=== PATIENT | female | born 1945 | race African-American/Black ===

== ENCOUNTER 2017-01-17 11:53 | Inpatient (IN) ==
[2017-01-17 15:12] LABS: HEMATOCRIT 24.8 % (37.0-47.0); HEMOGLOBIN 7.5 g/dL (12.0-16.0); MCH 28.2 PG (27-31); MCHC 30.2 g/dL (33-37); MCV 93.2 FL (81-99); MPV 9.6 FL (7.4-10.4); RBC 2.66 XMIL (4.2-5.4)
[2017-01-17 15:26] LABS: HEMOGLOBIN A1C 5.6 % (4.8-6.0)
[2017-01-17 15:32] LABS: CALCIUM 8.8 mg/dL (8.8-10.2); POTASSIUM 4.5 mmol/L (3.5-5.1)
[2017-01-17 15:56] LABS: IRON SATURATION 18 %; TIBC 339 ug/dL; TOTAL IRON 60 ug/dL (49-151); UNBOUND IRON 279 ug/dL (112-346)
[2017-01-17] MEDS ORDERED: BOOSTRIX VACCINE IM ONE (20:34)
[2017-01-17] MEDS ORDERED: NS 500 ML ONE (20:35)
[2017-01-17] MEDS: LIORESAL PO SCH (20:44)
[2017-01-17] MEDS: COREG PO SCH (20:45)
--- NOTE | 2017-01-17 21:11 | HISTORY AND PHYSICAL ---
CHIEF COMPLAINT: 1. Symptomatic anemia, shortness of breath. 2. Evaluated in the ER yesterday skittles fell on the both feet, sustained a skin burn. Patient was sent home on ibuprofen and doxycycline. HISTORY OF PRESENT ILLNESS: She is 71-year-old pleasant female. Basically came my office today with above symptoms. Patient has hematocrit baseline is around 31 and in my office hematocrit was 23 last week and she was asked to have the Hemoccult stools which are 3/3 positive. She also has a chronic kidney disease which has been worsening. She had chronic anemia back in 2014. She did receive 2 units of packed RBC during that time, patient has a normal erythropoietin level, normal SPEP. EGD, colonoscopy was done by Dr. Milner which was negative. She also had a right hemicolectomy by Dr. Sierra. Since patient has worsening of the kidney function test, anemia and also evaluation of the skin macias that was happened yesterday for all these reasons she has been hospitalized. I did discuss with Dr. Milner. He wants to transfuse a unit of packed RBC. He also wants to consult with Dr. Dejesus for chronic kidney disease. PAST MEDICAL HISTORY: Anemia, hematocrit 23, aortic stenosis mild, chronic kidney disease stage 3 keeps worsening, baseline creatinine is 2.1, diastolic heart failure, type 2 diabetes, metabolic syndrome, hypertension, osteoarthritis, hyperuricemia, hypothyroidism, sleep apnea, chronic respiratory failure due to Pickwickian syndrome using BiPAP machine along with sarcoidosis and interstitial fibrosis on prednisone. PAST SURGICAL HISTORY: Total knee arthroplasty in the left, colon resection on the right side by Dr. Sierra for diverticulitis. MEDICATIONS: Allopurinol 100 daily, baclofen 10 t.i.d., Breo 100/25 1 puff daily, Coreg 12.5 p.o. b.i.d., Flexeril 10 mg daily, Fenofibrate 160 daily, glipizide 10 mg p.o. b.i.d., hydralazine 25 three times daily, Icar-C Plus 1 tablet daily, Lasix 40 as needed, Zyrtec 10 mg daily, Synthroid 100 mcg daily, losartan 100 mg daily, Norvasc 10 daily, Prilosec 40 daily, oxybutynin as needed, prednisone 5 mg every other day, Rocaltrol 0.5 mcg daily, ProAir as needed, Tradjenta 5 mg daily. ALLERGIES: Not known. SOCIAL HISTORY: for 48 years. Three children. No smoking. No alcohol. Retired. FAMILY HISTORY: Father of heart attack at 70 mom of congestive heart failure at the age of 46. HEALTH MAINTENANCE: Flu vaccine 2015, pneumococcal 2008. Last EGD and colonoscopy by Dr. Milner in 2014. REVIEW OF SYSTEMS: HEENT: No headache. No vision problem. No earache. No sore throat. Neck: No goiter. No lymphadenopathy. No bruit. Cardiopulmonary: No chest pain, shortness of breath on exertion, PND orthopnea, taking oxygen. No lumps in the breast. GI: No nausea, vomiting, abdominal pain. Heme-positive stools. : No history of hesitancy, frequency. Extremities: Bilateral feet have skin macias and arthritic pains in both knees. Neurologic: No focal symptoms or weakness or seizures. PHYSICAL EXAMINATION: VITAL SIGNS: Stable. 5 feet 2, 207 pounds. HEENT: Within normal limits. Anemic. TMs are normal. Tongue is in midline. NECK: Supple. No lymphadenopathy. No goiter. CHEST: Bilateral air entry. HEART: Sounds are regular with a 2/6 systolic murmur in the aortic area. BREASTS: Exam deferred. BELLY: Soft, obese, nontender. Good bowel sounds. Heme-positive stools x3. No peripheral edema, cyanosis, clubbing. NEUROLOGIC: Nonfocal. INVESTIGATIONS: CBC: White cell count 5.5, hematocrit 24, platelets 301. SMA 7, BUN 78, creatinine 4.2, glucose 134, A1c 5.6, iron profile was negative. ASSESSMENT AND PLAN: 1. A 71-year-old female admitted to the hospital symptomatic anemia. Hematocrit was 23, heme-positive stools with underlying chronic respiratory failure, aortic stenosis. Transfuse a unit of packed RBCs tonight. Follow up on CBC. 2. Chronic kidney disease. Previous ultrasounds are negative. Dr. Dejesus consult. 3. Anemia of chronic kidney disease. Rule out multiple myeloma. SPEP was ordered. 4. Chronic kidney disease, anemia and also check erythropoietin level. Iron profile is normal. 5. Chronic respiratory failure due to combination of Pickwickian syndrome, underlying sarcoidosis with interstitial fibrosis. Prednisone 5 mg every other day. 6. Sleep apnea on CPAP machine with home oxygen. 7. Gout. Allopurinol 100 mg daily. 8. Aortic stenosis mild, stable. 9. Atypical chest pain. Last cardiac workup was negative in 2011. 10. History of acid reflux disease on Breo 40 mg daily. 11. Hypothyroidism on Synthroid 100 mcg daily. 12. Type 2 diabetes. Last A1c was 6.3 currently on Tradjenta. 13. Hypertension, heart disease. Continue present medical therapy for blood pressure. 14. First-degree heat burn on both feet. In light of diabetes wound care consult and she was not up-to-date on tetanus. Consider tetanus vaccine and will follow up on the pending labs. cc: David Stovall MD MTDD
[2017-01-17] MEDS: HUMULIN R SUBQ SCH (22:14)
--- NOTE | 2017-01-18 02:42 | CONSULTATION ---
DATE OF CONSULTATION: 01/17/2017 HISTORY AND REASON FOR CONSULTATION: For evaluation of this patient with anemia. HISTORY OF PRESENT ILLNESS: This is a 71-year-old lady, known to me from the admission in 2014. The patient went to see Dr. Stovall on . At that time, she was feeling very weak and tired. He did do some blood work, and also gave her 3 cards to see whether there is any blood in the stool. The patient then brought all the cards back, and all the 3 cards were positive for occult bleeding. Since she was quite anemic, Dr. Stovall decided to admit the patient on Tuesday for further evaluation and management. She said that she has been having black stools for the past 1 month. She denies any abdominal pain, constipation, or diarrhea. She says that she has no red blood in stool. Her says that last year she saw Dr. Ibarra. A colonoscopy was performed. It only showed hemorrhoids. PAST MEDICAL HISTORY: The patient has had multiple admissions to the hospital, with different problems. Last time I her was in 10/09/2015. At that time, she had rectal bleeding. She had passed red blood about 3 times. I have done a colonoscopy for her, which revealed diverticulosis of the colon, and also hemorrhoids. She had a right hemicolectomy. The patient's significant other medical problems include: 1. Chronic obstructive pulmonary disease. 2. Hypertension. 3. Diastolic heart failure. 4. Diabetes mellitus. 5. Obesity. 6. Osteoarthritis. 7. Chronic renal insufficiency, stage 2 or 3. 8. Sarcoidosis. 9. Hypothyroidism. 10. Obesity with Pickwickian syndrome, on oxygen therapy. 11. Diverticulosis of the colon. 12. Gastroesophageal reflux disease and chronic gastritis. 13. Small hiatus hernia. PAST SURGICAL HISTORY: 1. She had a resection of the right side of the colon secondary to diverticulitis a few years ago. 2. Left knee arthroplasty. 3. Previous esophagogastroduodenoscopy and colonoscopy in 2014, which revealed a right hemicolectomy and diverticulosis of the colon. She also had an esophagogastroduodenoscopy, which revealed a hiatus hernia. 4. History of heart failure. SOCIAL HISTORY: Patient used to smoke heavily, but stopped tobacco some time ago. She is living with her in [place]. She has 2 children. FAMILY HISTORY: No history of gastrointestinal cancer in the family. There is a history of hypertension and diabetes in the family. ALLERGIES: No known drug allergies. PHYSICAL EXAMINATION: Vital Signs: The temperature is 98.1 degrees, pulse rate is 93 per minute, respiratory rate is 20, blood pressure is 134/73. General: She looks pale. Very obese lady, in no acute distress. She is eating a regular diet while I was interviewing her. Neck: Supple. There is no thyromegaly. Cardiac: Both heart sounds are heard. Rhythm is slightly tachycardic. I could not hear any murmur. Lungs: Reveal a few bibasilar crackles. Abdomen: Protuberant. No area of tenderness. Bowel sounds are heard. No masses felt. Extremities: Apparently, she was cooking some pork for her , and there was some grease on the ground which was very hot. She stepped on it, and she developed some macias, and she is wearing bandages on her feet. It does not hurt at this point she said. Extremities otherwise free of any edema. LABORATORY DATA: WBC count is 5.52, hemoglobin is 7.5, hematocrit 24.8. The platelet count is 301,000. Sodium is 138, potassium is 4.5, chloride is 100, CO2 is 26, BUN is 78, creatinine is 4.2. The glucose is 134. Hemoglobin A1c is 5.6, calcium is 8.8, serum iron is 60, TIBC is 339. Saturation is 18. Ferritin level is 26. Folate is 25.3. IMPRESSION: 1. Black stools. Probably upper gastrointestinal bleeding causing her to have black stools and guaiac-positive stools. 2. Anemia of chronic disease, secondary to renal failure. RECOMMENDATION: We will observe the patient. Dr. Stovall is already giving transfusions. I am going to plan to do an esophagogastroduodenoscopy at a later date, perhaps on Tuesday. I do not believe that a colonoscopy is needed, because there is no evidence of any of rectal bleeding at this point. I will discuss all of these things once the patient gets a blood transfusion, with the patient and her and Dr. Stovall. cc: David Stovall MD
[2017-01-18] MEDS: HUMULIN R SUBQ SCH ×3 (06:00→20:53)
[2017-01-18 06:06] LABS: MANUAL DIFF NEEDED? NO
[2017-01-18 06:14] LABS: BASO% 0.3 % (0.0-0.8); EOS# 0.14 X1000 (0.0-0.7); EOS% 2.3 % (0.0-10.0); HEMATOCRIT 28.1 % (37.0-47.0); HEMOGLOBIN 8.6 g/dL (12.0-16.0); LYMPH# 2.54 X1000 (1.2-3.4); MCH 28.2 PG (27-31); MCHC 30.6 g/dL (33-37); MCV 92.1 FL (81-99); MONO# 0.81 X1000 (0.11-0.59); MONO% 13.4 % (1.7-9.3); MPV 10.1 FL (7.4-10.4); PLT 301 X1000 (130-400); RBC 3.05 XMIL (4.2-5.4)
[2017-01-18] MEDS: PRILOSEC PO SCH (06:22)
[2017-01-18 06:23] LABS: ALBUMIN 3.4 g/dL (3.5-5.0); POTASSIUM 4.6 mmol/L (3.5-5.1); TOTAL BILIRUBIN 0.4 mg/dL (0.20-1.00); TOTAL PROTEIN 5.8 g/dL (6.3-8.3)
--- NOTE | 2017-01-18 08:47 | Diag Imaging Result Doc PS360 ---
EXAM: US RENAL 2 (RETROPER) COMPLETE HISTORY: decreased renal function TECHNIQUE: COMPARISON: 10/29/2015. FINDINGS: The right kidney measures 8.2 x 4.6 x 4.3 cm. There is increased renal echotexture. Normal cortical thickness. No stone or hydronephrosis. No renal mass. Minimal fullness to the renal pelvis. The left kidney measures 9.8 x 5.8 x 5.7 cm. Increased renal echotexture. Normal cortical thickness. There are several small renal cysts. The largest measures 2.3 cm. No stone or hydronephrosis. The urinary bladder is mildly distended and appears normal. IMPRESSION: Increased renal echotexture consistent with medical renal disease Electronically signed by Kalpesh Iglesias 01/18/2017 8:44 AM
[2017-01-18] MEDS: COREG PO SCH ×4 (08:51→20:54)
[2017-01-18] MEDS: SYNTHROID PO SCH (08:51)
[2017-01-18] MEDS: NORVASC PO SCH (08:51)
[2017-01-18] MEDS: FERROUS SULFATE PO SCH (08:51)
[2017-01-18] MEDS: TRADJENTA PO SCH (08:51)
[2017-01-18] MEDS: COZAAR PO SCH (08:52)
[2017-01-18] MEDS: DITROPAN XL PO SCH (08:52)
[2017-01-18] MEDS: LOFIBRA PO SCH (08:52)
[2017-01-18] MEDS: LIORESAL PO SCH ×2 (08:52→20:54)
[2017-01-18] MEDS: APRESOLINE PO SCH ×3 (08:52→20:54)
[2017-01-18] MEDS: NORCO-5 PO PRN ×2 (09:08→15:07)
--- NOTE | 2017-01-18 10:28 | PROGRESS NOTE ---
DATE: 01/18/2017 HISTORY OF PRESENT ILLNESS: This patient is admitted with anemia and weakness. Dr. Stovall has ordered 1 unit of blood transfusion. Her hemoglobin came up from 7.5 to 8.6. She is feeling much better today with improvement in her weakness. The patient denies any abdominal pain. Yesterday, she told me that she had been having black stool on and off for 1 month. Today, she said that she only had black stools for about a week. Yesterday, she had black stools and today the bowel movement was clear. The patient denies any red blood in stool. She had last year a colonoscopy when she came in with rectal bleeding. It showed diverticulosis of the colon and also right hemicolectomy. In 2014, she had EGD and colonoscopy. She had gastritis and a small hiatus hernia. The patient had an ultrasound done today which showed medical renal disease. Her BUN has dropped from 78-76, creatinine from 4.2-3.9 today. Other electrolytes are okay. Her appetite is remaining normal. PHYSICAL EXAMINATION: Vital Signs: The temperature is 97.6 degrees, pulse rate is 50, blood pressure is 201/64, and respiratory rate is 18. General Examination: Unremarkable. Abdomen: Nothing new. IMPRESSION: 1. History of black stools. 2. Anemia of chronic disease. Her serum iron is 60, TIBC is 339, and presently saturation is 18, ferritin is 26. There might be an element of iron deficiency also. Because of the history of black stools, I am going to do an esophagogastroduodenoscopy tomorrow. I have explained the procedure of esophagogastroduodenoscopy with benefit and risks; in particular, risk of perforation, hemorrhage, and infection. Patient agreed for it. We will proceed with it. I also explained to the patient about monitored anesthesia care. She agreed for it. There is no indication at this point for a colonoscopy for her. cc: David Stovall MD
--- NOTE | 2017-01-18 12:38 | CONSULTATION ---
DATE OF CONSULTATION: 01/18/2017 REASON FOR CONSULTATION: Acute kidney injury overlying chronic kidney disease. HISTORY OF PRESENT ILLNESS: Ms. Gao is a 71-year-old black female with diabetes, hypertension, gout, osteoarthritis. She has diastolic heart failure as well as chronic kidney disease with resultant anemia. She has had anemia for at least a couple of years. She was in her usual state of health until perhaps a week or so prior to admission when she began feeling bad. She describes feeling profoundly weak and often dizzy, especially when she was up "stirring around." Weak in the legs but no falls. No loss of consciousness. No palpitations, chest discomfort, shortness of breath. She has been eating normally, though she has had some nausea. No vomiting. She describes frequent BMs but not diarrhea. Some mild abdominal pain associated with her bowel movements. She came to the emergency room for possible macias to the feet. She has dropped grease on the feet. This was within the last week. Her evaluation at her office visit with Dr. Stovall found her to be anemic and so he admitted her to the hospital for transfusion. Her initial labs also found her creatinine to be elevated above her historical baseline. Specifically, her baseline has been at 2.5 to 3 and her creatinine was 4.2 on presentation. We have seen her in the hospital about 1 year ago but she has not followed with us in the office. PAST MEDICAL HISTORY: As above. HOME MEDICATIONS: Include levothyroxine, furosemide, amlodipine, oxybutynin, carvedilol, prednisone, losartan, iron sulfate, aspirin, fenofibrate, baclofen, hydralazine, linagliptin, ibuprofen p.r.n., omeprazole. ALLERGIES: None. SOCIAL HISTORY: She is . Retired. No alcohol or tobacco. Large family. FAMILY HISTORY: Positive for heart disease. REVIEW OF SYSTEMS: Otherwise noncontributory. PHYSICAL EXAMINATION: Vital Signs: Blood pressure 201/64, heart rate 50, respirations 18, afebrile. General: She is an elderly woman, sitting in bed, no distress. Skin: Warm and dry. HEENT: Conjunctivae are pink. Pupils are equal. Oropharynx is clear. Mucous membranes moist. Tongue is midline. Neck: Supple. Trachea is midline. Neck: Neck veins are not distended. No hepatojugular reflux. Heart: Regular with a systolic murmur at the left upper sternal border. No gallops. Lungs: Have equal breath sounds. No crackles or wheezes. Abdomen: Obese and soft. Bowel sounds are present. No organomegaly or masses or bruits. Extremities: Have trace edema. No clubbing or cyanosis. Neurologic Exam: Grossly nonfocal. LABORATORY DATA: Sodium 144, potassium 4.6, chloride 104, bicarbonate 28, BUN 76, creatinine 3.9. Hemoglobin 8.6 following transfusion. IMPRESSIONS AND PLAN: 1. Acute kidney injury overlying chronic kidney disease. Renal ultrasound without obstruction. She does have small kidneys. We will give her normal saline at 75 an hour over the next 24 hours and reassess. Check urine electrolytes, urine eosinophils, urine protein, etc. 2. Anemia. She has received a transfusion. Her iron stores certainly were low. She has received a transfusion but we will go ahead and give IV Venofer as well. Erythropoietin level is pending. GI evaluation is appropriate if it has not been performed in recent history. We will not start erythropoietin until her iron deficiency is resolved. cc: MD David Benson MD
[2017-01-18] MEDS: NS 1,000 ML IV SCH (15:04)
[2017-01-18] MEDS: VENOFER 200 MG in NS 150 ML IV SCH (15:04)
--- NOTE | 2017-01-18 18:39 | ECHO REPORT ---
ORDER DATE: 01/18/2017 INTERPRETING PHYSICIAN: Dr. Zacarias REQUESTING PHYSICIAN: Genaro Dejesus MD CLINICAL INDICATIONS: Aortic stenosis, anemia, chronic kidney disease. M-MODE MEASUREMENTS: Right ventricle: 2.7 cm. Left ventricle end diastole: 5.3 cm. Left ventricle end systole: 3.4 cm. Posterior wall: 1.1 cm. Interventricular septum: 1.1 cm. Left atrium: 4.9 cm. Aortic root: 3.7 cm. SUMMARY OF 2-DIMENSIONAL IMAGING: The left ventricular function is normal. Ejection fraction 72%. The chamber is significantly enlarged. There is a mild degree of concentric LVH. The right ventricle is at the upper limits of normal. The aortic valve is calcified. Calcification is somewhat irregular along the edges of the cusps with some restriction to its opening. Color flow mapping shows a mild degree of aortic regurgitation. Continuous wave Doppler across the outflow tract of the left ventricle shows a maximum gradient of 42 mmHg. Mean gradient is 22 mmHg. Valve area is calculated at 1.5 cm squared, suggesting a mild- to-moderate degree of aortic stenosis. The pulmonic valve looks normal with a mild degree of regurgitation. The tricuspid valve shows a mild degree of regurgitation. The inferior vena cava is not dilated. Pulmonary pressure estimated at 23 mmHg. The mitral annulus shows calcification. The mitral valve opens normally. Color flow mapping indicates trace regurgitation. Pulse wave Doppler of mitral inflow shows mild reversal of the E and the A wave. Tissue Doppler of septal and lateral mitral annulus averages 4.5 cm per second, indicating impaired left ventricular relaxation. Pulmonary venous flow is normal. There is no pericardial effusion, masses or thrombus. The left atrium is moderately to significantly enlarged. IMPRESSION: In summary, this study shows: 1. Enlarged left ventricle of moderate to significant degree with normal function. Ejection fraction 72%. 2. Impaired left ventricular relaxation. 3. [id number] degree of aortic stenosis. Mean gradient is 22 mmHg. Valve area 1.5 cm squared. There is a mild degree of aortic regurgitation. 4. Pulmonary systolic pressure is normal. 5. No pericardial effusion, masses or thrombus. cc: MD Genaro Oquendo MD Jagan Reddy, MD
[2017-01-18 21:17] LABS: URINE MICRO REVIEW NEEDED? NO; URINE SOURCE VOIDED
[2017-01-18 21:22] LABS: BILIRUBIN URINE NEGATIVE (NEGATIVE); BLOOD URINE NEGATIVE (NEGATIVE); COLOR YELLOW; GLUCOSE URINE NEGATIVE (NEGATIVE); LEUKOCYTES URINE NEGATIVE (NEGATIVE); NITRITE URINE NEGATIVE (NEGATIVE); PROTEIN URINE 100 mg/dL (NEGATIVE); TURBIDITY URINE CLEAR (CLEAR); UROBILINOGEN URINE NORMAL (NORMAL)
[2017-01-18 21:23] LABS: UR EPITHELIAL CELLS <10 /HPF (<10); URINE BACTERIA NEGATIVE /HPF; URINE RBC <10 /HPF (<10); URINE WBC <10 /HPF (<10)
[2017-01-18 21:47] LABS: UR CREAT RANDOM 59.9 mg/dL (11-20); UR PROT RANDOM 86.5 mg/dL
[2017-01-19] MEDS: NORCO-5 PO PRN (03:40)
[2017-01-19] MEDS: NS 1,000 ML IV SCH ×3 (05:15→12:09)
[2017-01-19 05:45] LABS: HEMATOCRIT 30.9 % (37.0-47.0); HEMOGLOBIN 9.7 g/dL (12.0-16.0); MCH 29.1 PG (27-31); MCHC 31.4 g/dL (33-37); MCV 92.8 FL (81-99); MPV 9.7 FL (7.4-10.4); RBC 3.33 XMIL (4.2-5.4)
[2017-01-19 06:10] LABS: ALBUMIN 3.4 g/dL (3.5-5.0); CALCIUM 8.8 mg/dL (8.8-10.2); POTASSIUM 4.9 mmol/L (3.5-5.1)
--- NOTE | 2017-01-19 07:29 | PROGRESS NOTE ---
DATE: 01/18/2017 SUBJECTIVE: Status post 1 unit of packed RBCs. The patient was discussed. She does not offer any complaints. The case was discussed with Dr. Dejesus and Dr. Milner. REVIEW OF SYSTEMS: None recorded. OBJECTIVE: Vital signs: Vitals are stable. Blood pressure is running high. Heart rate is 50. Afebrile. Nasal cannula on 2 L 100%. General: Obese. HEENT: Exam within normal limits. Neck: Supple. No lymphadenopathy. No goiter. Chest: Bilateral air entry. Cardiac : Heart sounds are regular. Belly: Soft, nontender, obese. Good bowel sounds. Herrera wraps and bandage were removed from both feet and I could not find any blisters. Skin is intact. INVESTIGATIONS: CBC: White cell count 6, hematocrit 28, platelets 301. SMA7: BUN 76, creatinine 3.9, glucose 102. A1c 5.6. Erythropoietin level 9.0. SPEP is no monoclonal protein identified. Urinalysis: Eosinophils are negative, clear. ASSESSMENT AND PLAN: 1. Anemia and heme-positive stools. Previous workup was negative. Status post 1 unit of packed RBCs. Will keep her around 30. 2. Heme-positive stools. Previous workup revealed internal hemorrhoids. Will defer to Dr. Milner. 3. End-stage chronic kidney disease level 4 and EPO levels are normal. Normal SPEP. Will follow with Dr. Dejesus's recommendations. 4. History of injury to both feet. Not up to date on tetanus. Will administer TDAP. TIME: Twenty-five minutes. cc: David Stovall MD [facility]
[2017-01-19] MEDS ORDERED: XYLOCAINE-MPF 2% ONE (08:25)
--- NOTE | 2017-01-19 08:42 | PROGRESS NOTE ---
DATE: 01/19/2017 SUBJECTIVE: This patient is admitted with significant anemia. She has undergone an esophagogastroduodenoscopy which revealed that she has early erosive gastritis and mild sandrine esophagitis. She was started on Diflucan. She is already on omeprazole. The patient's condition seems to be stable. PHYSICAL EXAMINATION: Vital Signs: Temperature is 98.5 degrees. Pulse is 50 per minute, respiratory rate is 16, blood pressure is 176/64. General Examination: Negative. Abdominal Examination: Also negative. LAB DATA: WBC count is 5.27, hemoglobin 9.7, hematocrit 30.9. The sodium is 142, potassium 4.9, chloride is 104, CO2 is 27, BUN 69, creatinine is 3.4. On admission, serum iron was 50, TIBC was 339, saturation was 18, ferritin level was 26. Her erythropoietin level was 9. IMPRESSION: 1. Improvement in her anemia. 2. Erosive gastritis. 3. Sandrine esophagitis. 4. No significant iron-deficiency anemia. No definite evidence of any bleeding. RECOMMENDATIONS: I do not believe there is a colonoscopy needed at this point for this patient. She has anemia of chronic disease and also possibly mild iron-deficiency anemia which is being taken care of by oral iron therapy. After discharge, she needs to see me in the office in 2 weeks' time. cc: MD Genaro Fernandez MD
--- NOTE | 2017-01-19 08:50 | OPERATIVE NOTE ---
PROCEDURE DATE: 01/19/2017 PROCEDURE: Esophagogastroduodenoscopy. DATE OF PROCEDURE: 01/19/2017. HISTORY AND REASON FOR PROCEDURE: This patient is admitted with a history of black stools for the past 1 week. She was very anemic and she has received blood transfusion. Her hemoglobin and hematocrit came up today to 9.7 and 30.9. She has improved. Medications were all given by the anesthesiologist. Patient was monitored before, during, and after the procedure by them, and her condition remains stable. Photos taken from the antrum and specimen from the antrum to rule out Helicobacter pylori infection. DESCRIPTION OF PROCEDURE IN DETAIL: The patient was kept in the left lateral decubitus position. A bite block applied. The Olympus videoscope was introduced under direct vision to the throat and advanced to the esophagus. The esophagus was then insufflated. The mucosa in the upper esophagus, mid esophagus, and lower esophagus had a few whitish-hernandez exudates present suggestive of yeast infection which is not uncommon in patients with diabetes mellitus. It was a mild infection, not a florid one. The scope was advanced without any difficulty into the stomach. There was a small hiatus hernia present. The mucosa of the stomach was very crowded with some edema and erythema of the folds with significant erosions in the prepyloric antrum. Multiple erosions were found with no evidence of any bleeding. There were enlarged folds in that area. Biopsies were taken from this area to rule out H. pylori infection. The pylorus admitted the scope without any difficulty. Duodenal bulb and second part of the duodenum appeared normal. The scope was withdrawn to the stomach, retroflexed. The angularis, lesser curvature, and greater curvature were all examined carefully. There were no lesions present in the body and fundus of the stomach. There was no evidence of any bleeding. Air was taken out of the patient's stomach and scope was removed from the patient. IMPRESSION: 1. Erosive gastritis. This may contribute to her anemia only a little bit. 2. Cause of black stool might be secondary to her iron therapy, which she is getting constantly. RECOMMENDATIONS: I will start her on Diflucan 100 mg daily; it needs to be given for about 2 weeks. Patient to see me back in the office in 2 weeks time after discharge for the results of the biopsy. cc: David Stovall MD
[2017-01-19] MEDS ORDERED: PREDNISONE PO SCH (09:00)
[2017-01-19] MEDS: COZAAR PO SCH (09:28)
[2017-01-19] MEDS: FERROUS SULFATE PO SCH (09:29)
[2017-01-19] MEDS: DITROPAN XL PO SCH (09:29)
[2017-01-19] MEDS: LOFIBRA PO SCH (09:29)
[2017-01-19] MEDS: TRADJENTA PO SCH (09:29)
[2017-01-19] MEDS: LIORESAL PO SCH ×2 (09:29→21:04)
[2017-01-19] MEDS: DIFLUCAN PO SCH (09:30)
[2017-01-19] MEDS: NORVASC PO SCH (09:30)
[2017-01-19] MEDS: VENOFER 200 MG in NS 150 ML IV SCH (09:30)
[2017-01-19] MEDS: SYNTHROID PO SCH (09:30)
[2017-01-19] MEDS: APRESOLINE PO SCH ×3 (09:30→17:54)
[2017-01-19] MEDS: COREG PO SCH ×2 (09:30→21:04)
--- NOTE | 2017-01-19 09:37 | PROGRESS NOTE ---
DATE: 01/19/2017 SUBJECTIVE: She states she is feeling well. She had an endoscopy this morning without any active bleeding. She did have evidence of tiff esophagitis as well as erosive gastritis. Colonoscopy is not planned currently. OBJECTIVE: Vital Signs: Blood pressure 175/73, heart rate 51, respirations 16, afebrile. Intake 1.6 L. Output incomplete. Physical Examination: General: Obese, black female, in no distress. Skin: Warm and dry. HEENT: Conjunctivae are pink. Neck: Neck veins are not visible. Heart: Regular without gallops or murmurs. Lungs: Have equal breath sounds. No crackles. Abdomen: Soft, nontender, obese. Bowel sounds present. Extremities: Have minimal edema. No clubbing or cyanosis. Laboratory Data: Sodium 142, potassium 4.9, chloride 104, bicarbonate 27, BUN 69, creatinine 3.4. Hemoglobin 9.7. IMPRESSION: 1. Acute kidney injury overlying chronic kidney disease. Baseline creatinine approximately 2.5. Labs are improving on a daily basis. Observe. If discharged, we will follow her in the office within proximally 2-3 weeks. 2. Electrolytes/acid base in target. 3. Anemia. Her erythropoietin level is inappropriately normal. We are currently replacing her iron deficiency. If anemia is persistent thereafter, then she may need erythropoietin. 4. Hypertension, above target but stable. We will address as an outpatient. cc: MD David Benson MD
[2017-01-19] MEDS ORDERED: DIPRIVAN 1% ONE (09:51)
[2017-01-19] MEDS: HUMULIN R SUBQ SCH ×4 (12:00→21:04)
[2017-01-19] MEDS: PRILOSEC PO SCH (12:01)
--- NOTE | 2017-01-19 19:11 | PROGRESS NOTE ---
DATE: 01/19/2017 SUBJECTIVE: Patient is status post 2 units of packed RBCs and 300 mg of Venofer. No complaints. The patient is going for esophagogastroduodenoscopy this morning. OBJECTIVE: Vitals: Stable. HEENT: Within normal limits. Neck: Supple. No lymphadenopathy. Chest: Clear to auscultation. Heart: Sounds are regular with a flow murmur in the aortic area. Abdomen: Belly is soft, obese, nontender. Good bowel sounds. No masses palpable. No peripheral edema, cyanosis, clubbing. Neurologic: Nonfocal. INVESTIGATIONS: CBC: White cell count 5.2, hematocrit 30, platelet 277,000. BUN 142, potassium 4.9, chloride 104, BUN 69, creatinine 3.4, glucose 110 and erythropoietin is low 9.0. ASSESSMENT AND PLAN: 1. Anemia, heme-positive stools. EGD is going today. Status post 2 units of packed RBC iron infusion. 2. Chronic kidney disease. Erythropoietin is low status post iron infusion. Dr. Dejesus is going to follow up. 3. Based on the EGD further recommendations will be followed and if she is stable will be discharged in the morning and follow up as an outpatient LEVEL OF DOCUMENTATION: 15 minutes. cc: David Stovall MD
[2017-01-20] MEDS: NS 1,000 ML IV SCH (00:27)
[2017-01-20] MEDS: NORCO-5 PO PRN ×2 (01:45→08:12)
[2017-01-20 06:02] LABS: HEMATOCRIT 31.7 % (37.0-47.0); HEMOGLOBIN 9.9 g/dL (12.0-16.0); MCH 28.9 PG (27-31); MCHC 31.2 g/dL (33-37); MCV 92.7 FL (81-99); MPV 9.6 FL (7.4-10.4); RBC 3.42 XMIL (4.2-5.4)
[2017-01-20 06:38] LABS: ALBUMIN 3.5 g/dL (3.5-5.0); CALCIUM 8.8 mg/dL (8.8-10.2); POTASSIUM 4.8 mmol/L (3.5-5.1)
[2017-01-20] MEDS: HUMULIN R SUBQ SCH (06:51)
[2017-01-20] MEDS: PRILOSEC PO SCH (06:52)
[2017-01-20 07:44] VITALS: BP 189/55
[2017-01-20] MEDS: APRESOLINE PO SCH (08:14)
[2017-01-20] MEDS: NORVASC PO SCH (08:14)
[2017-01-20] MEDS: FERROUS SULFATE PO SCH (08:14)
[2017-01-20] MEDS: DITROPAN XL PO SCH (08:14)
[2017-01-20] MEDS: LIORESAL PO SCH (08:15)
[2017-01-20] MEDS: DIFLUCAN PO SCH (08:16)
[2017-01-20] MEDS: COREG PO SCH (08:16)
[2017-01-20] MEDS: LOFIBRA PO SCH (08:16)
[2017-01-20] MEDS: TRADJENTA PO SCH (08:16)
[2017-01-20] MEDS: VENOFER 200 MG in NS 150 ML IV SCH (08:17)
[2017-01-20] MEDS: SYNTHROID PO SCH (08:17)
--- NOTE | 2017-01-20 09:04 | PROGRESS NOTE ---
DATE: 01/20/2017 SUBJECTIVE: She is feeling well and is anticipating discharge today. Shortness of breath is at baseline. OBJECTIVE: Blood pressure 189/55, heart rate 48, respirations 14, afebrile. Generally, she is a middle-aged, obese woman in no acute distress. Skin is warm and dry. Conjunctivae are pink and moist. Neck veins are not visible. Heart is regular, without gallops. Lungs have equal breath sounds. No crackles. Abdomen is soft and nontender, obese. Extremities have no edema, clubbing or cyanosis. LABORATORY DATA: Sodium 142, potassium 4.8, chloride 106, bicarbonate 26, BUN 60, creatinine 2.9. IMPRESSION: 1. Chronic kidney disease. Her creatinine is roughly at her historical baseline, improving daily. 2. Electrolyte/acid-base in target. 3. Anemia, stable. She is finishing her course of Venofer. We will follow her in the office and treat with erythropoietin if appropriate. 4. Hypertension, above target. We will adjust this more tightly as an outpatient. cc: MD David Benson MD
--- NOTE | 2017-01-20 23:18 | DISCHARGE SUMMARY ---
ADMISSION DATE: 01/17/2017 DISCHARGE DATE: 01/20/2017 DISCHARGING DIAGNOSIS: Symptomatic anemia due to multifactorial, with heme-positive stools and chronic kidney disease and iron deficiency anemia. SECONDARY DIAGNOSES: 1. Srcu-[id number]-[id number] aortic valve stenosis. 2. Chronic kidney disease, stage 3. 3. Diastolic heart failure. 4. Type 2 diabetes. 5. Hypertension. 6. Osteoarthritis. 7. Hyperuricemia. 8. Hypothyroidism. 9. Sleep apnea. 10. Chronic respiratory failure due to Pickwickian syndrome, along with sarcoidosis and interstitial fibrosis, on prednisone, using BiPAP machine. CONSULTANTS: Dr. Dejesus and Dr. Milner. PROCEDURES: 1. Transfusion of 2 units of packed RBCs and 300 mg of IV iron infusion. 2. EGD. FINDINGS: Candidal esophagitis. No signs of active bleeding. BRIEF HISTORY: Please see the H P that was done on 01/17/2017. In brief, she is a 71-year-old pleasant female, admitted to the hospital with symptomatic anemia, hematocrit 23, heme-positive stools. She also had an injury to both feet. I do not see any external blisters or injuries. Patient was not up-to-date on tetanus, for which she was given a booster dose of Tdap. The medical problems as follows: 1. Anemia with heme-positive stools. Patient was well known to Dr. Milner. He did an EGD and colonoscopy in 2014. The EGD did not show any signs of active bleeding. It showed some candidiasis, for which the patient was given clotrimazole troches. 2. The patient did receive 2 units of packed RBC, along with platelet infusion. Hematocrit was 30. EPO levels are subtherapeutic, and Dr. Dejesus is going to maintain the chronic kidney disease and anemia. Creatinine was coming down below 3. 3. History of injury to the feet prior to the admission. No blisters noted. Tdap vaccine was given. 4. Chronic interstitial fibrosis with sarcoidosis, stable on prednisone every other day. LABORATORY STUDIES: At the time of discharge, as follows. CBC: White cell count 6.4, hematocrit 31.7, platelets 274. SMA-7: Sodium 142, potassium 4.8, chloride 106, BUN 60, creatinine 2.9, calcium 8.8, phosphorus 4.2. Erythropoietin level subtherapeutic at 9.0. Serum protein electrophoresis negative for monoclonal protein. Folate and B12 levels were normal. Urine sodium 62. Random creatinine 59. Total protein 86.5. Renal ultrasound on 01/18/2017 consistent with medical renal disease. Kidney size is 8.2/9.8 cm. Echocardiography report: Normal LV systolic function. EF 72%. [id number] aortic stenosis. Estimated aortic valve area 1.5 square cm. DISCHARGE INSTRUCTIONS: Tdap 12/2016. Synthroid 100 mcg daily. Lasix 40 daily. Norvasc 10 daily. Ditropan 10 mg daily. Coreg 12.5 p.o. b.i.d. Prednisone 5 mg every other day. Losartan 100 daily. Iron sulfate 325 daily. Aspirin 81 daily. Fenofibrate 160 daily. Baclofen 5 p.o. b.i.d. Hydralazine 50 p.o. t.i.d. Tradjenta 5 mg daily. Discontinue any NSAIDs. Prilosec 20 daily. Clotrimazole q.6 for candidal esophagitis. Follow up in my office next week, as well as other consultants. cc: MD Marjorie Fernandez MD Reginald D. Gladish, MD
== END 2017-01-20 11:08 | disposition home health service (06) ==
LOC: DIRADM 11:53 → 4N 14:33
PROVIDERS: ADMIT Internal Medicine; ATTEND Internal Medicine

== ENCOUNTER 2017-04-27 11:21 | Inpatient (IN) ==
[2017-04-27 15:02] LABS: MANUAL DIFF NEEDED? NO
[2017-04-27 15:12] LABS: BASO% 0.3 % (0.0-0.8); EOS# 0.17 X1000 (0.0-0.7); EOS% 2.2 % (0.0-10.0); HEMATOCRIT 23.8 % (37.0-47.0); HEMOGLOBIN 7.4 g/dL (12.0-16.0); LYMPH# 2.42 X1000 (1.2-3.4); LYMPH% 31.9 % (20.5-51.1); MCH 29.5 PG (27-31); MCHC 31.1 g/dL (33-37); MCV 94.8 FL (81-99); MONO# 0.88 X1000 (0.11-0.59); MONO% 11.6 % (1.7-9.3); MPV 9.7 FL (7.4-10.4); PLT 323 X1000 (130-400); RBC 2.51 XMIL (4.2-5.4)
[2017-04-27 15:35] LABS: ALBUMIN 3.6 g/dL (3.5-5.0); POTASSIUM 4.3 mmol/L (3.5-5.1); TOTAL BILIRUBIN 0.14 mg/dL (0.20-1.00); TOTAL PROTEIN 6.1 g/dL (6.3-8.3)
[2017-04-27] MEDS: LIORESAL PO SCH (21:24)
[2017-04-27] MEDS: APRESOLINE PO SCH (21:24)
[2017-04-27] MEDS: COREG PO SCH (21:24)
[2017-04-27] MEDS ORDERED: NS 0 ML ONE (22:23)
[2017-04-27] MEDS ORDERED: NS 500 ML ONE (22:26)
--- NOTE | 2017-04-27 22:56 | HISTORY AND PHYSICAL ---
CHIEF COMPLAINT: Fatigue, weakness, shortness of breath on exertion, symptomatic anemia, hemoglobin 7 g, hematocrit 23 in my office last week. Outpatient follow-up. Hemoccult x3 were positive. HISTORY OF PRESENT ILLNESS: She is a 71-year-old, pleasant, female, who was admitted last in December of this same problem. She was seen by Dr. Milner. She continues to have occult GI bleeding. She has known history of chronic kidney disease and sarcoidosis. She was initially treated outpatient. Continued with iron sulfate. Last hematocrit was 30. Last week in my office, it was down to 23 and heme-positive stools. She has been admitted to the hospital for 2 units of packed RBC as well as iron infusion. Further GI workup. I discussed with Dr. Milner. He did in the past EGD and colonoscopy. PAST MEDICAL HISTORY: Chronic anemia. Mild aortic stenosis. Chronic kidney disease stage 3. Baseline creatinine 2.1. Diastolic heart failure. Type 2 diabetes. Metabolic syndrome. Hypertension. Osteoarthritis. Hyperuricemia. Hypothyroidism. Sleep apnea. Chronic respiratory failure due to Pickwickian syndrome using BiPAP machine. She also has chronic sarcoidosis with interstitial fibrosis on prednisone. PAST SURGICAL HISTORY: Total knee arthroplasty on the left. Colon resection on the right side by Dr. Sierra for diverticulitis. MEDICATIONS: Synthroid 100 mcg daily, Lasix 40 mg daily, amlodipine 10 daily, Ditropan XL 10 daily, Coreg 12.5 p.o. b.i.d., prednisone 5 mg tablet every other day, Cozaar 100 mg daily, iron sulfate 325 daily, aspirin 80 mg daily, Fenofibrate 160 daily, baclofen 5 mg p.o. b.i.d., hydralazine 50 p.o. t.i.d., Tradjenta 5 mg daily, Prilosec 20 daily. ALLERGIES: Not known. SOCIAL HISTORY: for 40 years. Three children. No smoking. No alcohol. Retired. FAMILY HISTORY: Father of heart attack at 70. Mom of heart failure at the age of 46. HEALTH MAINTENANCE: Last EGD/colonoscopy by Dr. Milner. Flu vaccine 2016. Pneumococcal vaccine and needs to up to date. Tdap 01/18/2017. REVIEW OF SYSTEMS: HEENT: No headache. No vision problem. No earache. No sore throat. Neck: No goiter. No lymphadenopathy. No bruit. Cardiopulmonary: No chest pain, shortness of breath. No PND. No orthopnea. GI: No nausea, vomiting, abdominal pain. No altered bowel habits. No constipation, no bleeding per rectum. : No history of hesitancy, frequency, dysuria. No swelling of feet. No joint pains. Neurologic: No focal symptoms or weakness. PHYSICAL EXAMINATION: VITAL SIGNS: Afebrile, vitals are stable. 5 feet 3, 190 pounds. HEENT: Atraumatic, normocephalic. Pupils equal, reactive to light. TMs are normal. Nose and throat within normal limits. NECK: Supple. No lymphadenopathy. No goiter. CHEST: Bilateral air entry. HEART: Sounds are regular with a 2 x 6 systolic murmur in aortic area. ABDOMEN: Belly is soft, obese, nontender. Good bowel sounds. No masses palpable. EXTREMITIES: No peripheral edema, cyanosis. NEUROLOGIC: No obvious neurological deficits. INVESTIGATIONS: CBC: White cell count 7.5, hematocrit 23, platelet count 323,000. SMA7 is normal except BUN 63, creatinine 3.9, glucose 105. LFTs were normal. ASSESSMENT AND PLAN: 1. A 71-year-old black female admitted to the hospital for symptomatic anemia with heme-positive stools. Plan is transfusion of 2 units of packed RBC as well as iron infusion. GI consult. 2. Reconcile home medications. Discussed with Dr. Milner. Last EGD report was done 01/19/2017. Last colonoscopy 2014. ABG: Negative. Consider capsule endoscopy. I will follow up. cc: David Stovall MD
[2017-04-28] MEDS: LASIX IV SCH ×2 (02:16→05:50)
[2017-04-28] MEDS ORDERED: LASIX ONE (05:44)
[2017-04-28] MEDS: PRILOSEC PO SCH (06:20)
[2017-04-28 06:47] LABS: MANUAL DIFF NEEDED? NO
[2017-04-28 07:03] LABS: BASO% 0.3 % (0.0-0.8); EOS# 0.22 X1000 (0.0-0.7); EOS% 3.2 % (0.0-10.0); HEMATOCRIT 29.4 % (37.0-47.0); HEMOGLOBIN 9.5 g/dL (12.0-16.0); LYMPH% 33.4 % (20.5-51.1); MCH 30.2 PG (27-31); MCHC 32.3 g/dL (33-37); MCV 93.3 FL (81-99); MONO# 0.99 X1000 (0.11-0.59); MONO% 14.4 % (1.7-9.3); NEUT% 48.7 % (42.2-75.2); PLT 308 X1000 (130-400); RBC 3.15 XMIL (4.2-5.4)
[2017-04-28 07:44] LABS: POTASSIUM 4.4 mmol/L (3.5-5.1)
--- NOTE | 2017-04-28 09:27 | CONSULTATION ---
DATE OF CONSULTATION: 04/28/2017 HISTORY AND REASON FOR CONSULTATION: Evaluation of this patient with anemia. HISTORY OF PRESENT ILLNESS: This is a 71-year-old lady known to me from previous encounters. She is a known case of diabetes mellitus, hypertension, and chronic renal insufficiency. The patient went to see Dr. Stovall in the office because she was feeling dizzy and weak, and short of breath on exertion. The patient had blood work done which showed that the hemoglobin was low at 7 and hematocrit 22 at the office. Therefore, the patient was admitted to the hospital for further evaluation and management. She received 2 units of blood transfusions. Today, her hemoglobin is 9.5 and hematocrit 29.4. The patient had been admitted to the hospital several times with anemia of this type with no evidence of any black stools or red blood in stool. She had dark stools secondary to chronic iron therapy. She said that she has been taking and for the last 6 months. However, the hematocrit did not improve with oral iron therapy. The patient was admitted in December of 2014. At that time, I saw the patient and she underwent an esophagogastroduodenoscopy and colonoscopy. The EGD revealed a normal esophagus with a small hiatus hernia and erosions in the antrum with a few enlarged folds. A biopsy was done to rule out Helicobacter pylori infection. That was negative. The patient also had a colonoscopy done at that time. She had sigmoid diverticulosis and a few diverticula in the descending colon. The patient had a right hemicolectomy and the anastomosis was looking good. The patient saw me in the office for a followup at that time and her condition was stable. I ordered a CBC in 3 months and asked the patient to come back in 3 months but she did not show up. Since then, the patient had been admitted with different problems in the hospital in 2014 and 2015. In 2016, she was admitted again in December with significant anemia. At that time, I had seen her in consultation. An esophagogastroduodenoscopy was done because of again history of black stools. The mucosa of the stomach was very crowded with some edema and erythema of the folds with significant erosions in the prepyloric region. Multiple erosions were found with no evidence of active bleeding. Biopsies were taken from these enlarged folds. There might have a GI blood loss secondary to those findings. The biopsy was negative for any H. pylori. The patient was again asked to come and see me in the office but she failed to come and see me. PAST MEDICAL HISTORY: 1. Diabetes mellitus. 2. Chronic obstructive pulmonary disease. 3. Hypertension. 4. Diastolic heart failure. 5. Obesity. 6. Osteoarthritis. 7. Chronic renal insufficiency stage II or III. 8. Sarcoidosis. 9. Hypothyroidism. 10. Questionable Pickwickian syndrome, on oxygen therapy. 11. Diverticulosis of the colon. 12. Gastroesophageal reflux disease. 13. Small hiatus hernia. PAST SURGICAL HISTORY: 1. Resection of the right colon secondary to diverticulitis a few years ago. 2. Left knee arthroplasty. 3. Previous EGDs and colonoscopy. SOCIAL HISTORY: She used to smoke quite heavily but discontinued lately. She has 2 children and lives with her . She never used alcoholic beverages. ALLERGIES: No known drug allergies. FAMILY HISTORY: There is no history of GI cancer in the family. There is history of hypertension and diabetes in the family. REVIEW OF SYSTEMS: Appetite is good. There is no nausea, vomiting, or difficulty in swallowing. Heartburn is controlled. She has some constipation but not remarkable. No abdominal pain. No red blood in stool. PHYSICAL EXAMINATION: General: The patient is alert, oriented x3. Vital Signs: The temperature is 98.2 degrees, pulse rate is 58, respiratory rate is 16, blood pressure is 168/50. Skin: She looks pale. Skin is warm and dry. HEENT: Mucous membranes are moist. Neck: Supple. There is no thyromegaly. Cardiovascular: Both heart sounds are heard. Rhythm is regular. I could not hear any murmur. Lungs: Clear to percussion and auscultation. Abdomen: Soft. Nontender. No masses are felt. Liver and spleen not enlarged. Scar of previous surgery present. Extremities: No pedal edema. LABORATORY DATA: The hemoglobin today is 9.5, hematocrit 29.4, the platelet count is 308,000, MCV is 93.3. Sodium is 143, potassium is 4.4, chloride is 103, carbon dioxide is 27, BUN is 63, creatinine is 4, glucose is 90. The liver function tests are normal. Albumin is 3.6. IMPRESSION: 1. Anemia secondary to possible gastrointestinal blood loss. 2. Anemia of chronic disease due to renal failure. RECOMMENDATION: The patient said that she has an appointment to see Dr. Dejesus earlier in April. GI-javier, I do not think at this point any workup is indicated. I have asked the patient to come and see me in the office next week so that I can arrange for a capsule endoscopy. The patient could be discharged home today because she is asymptomatic. I have recommended all these things to Dr. Stovall. cc: David Stovall MD
[2017-04-28] MEDS ORDERED: INJECTAFER 750 MG in NS 250 ML IV ONE (10:00)
[2017-04-28] MEDS: SYNTHROID PO SCH (10:02)
[2017-04-28] MEDS: LASIX PO SCH (10:02)
[2017-04-28] MEDS: COREG PO SCH ×2 (10:02→21:01)
[2017-04-28] MEDS: TRADJENTA PO SCH (10:02)
[2017-04-28] MEDS: APRESOLINE PO SCH ×3 (10:02→21:01)
[2017-04-28] MEDS: TRICOR PO SCH (10:02)
[2017-04-28] MEDS: DITROPAN XL PO SCH (10:03)
[2017-04-28] MEDS: LIORESAL PO SCH ×2 (10:03→21:00)
[2017-04-28] MEDS: NORVASC PO SCH (10:03)
[2017-04-28] MEDS: FERROUS SULFATE PO SCH (10:03)
[2017-04-28] MEDS: COZAAR PO SCH (10:03)
--- NOTE | 2017-04-28 18:23 | PROGRESS NOTE ---
DATE: 04/28/2017 SUBJECTIVE: The patient is not offering any complaints. She did receive 2 units of packed RBCs. REVIEW OF SYSTEMS: None reported. PHYSICAL EXAMINATION: Vital Signs: Afebrile. Vitals are stable. Heart rate 53, blood pressure is 170/55. HEENT: Slightly pale. Neck: Supple. Chest: Clear. Heart: Sounds are regular. Abdomen: Belly is soft, nontender. Good bowel sounds. No peripheral edema, cyanosis. No obvious neurological deficits. INVESTIGATIONS: CBC, white cell count 6.8, hematocrit 29.4, platelets 308,000. SMA 7: Sodium 140, potassium 4.4, BUN 63, creatinine 4.0. ASSESSMENT AND PLAN: 1. Symptomatic anemia. Noted improvement. EGD, colonoscopy were negative. Discussed with Dr. Milner. He is going to arrange outpatient capsule endoscopy. Transfuse 1 bag of iron infusion. 2. Chronic kidney disease. Stable. 3. Repeat the CBC, SMA 7 in the morning. If she is stable, will be discharged and follow up with Dr. Milner. LEVEL OF DOCUMENTATION: 25 minutes. cc: David Stovall MD
[2017-04-29] MEDS: PRILOSEC PO SCH (06:40)
[2017-04-29 07:57] LABS: MANUAL DIFF NEEDED? NO
[2017-04-29 08:01] LABS: BASO% 0.3 % (0.0-0.8); EOS# 0.27 X1000 (0.0-0.7); EOS% 4.7 % (0.0-10.0); HEMATOCRIT 32.2 % (37.0-47.0); HEMOGLOBIN 10.4 g/dL (12.0-16.0); IMM GRAN# 0.02 X1000 (0.0-0.04); IMM GRAN% 0.3 % (0.0-0.5); LYMPH# 1.95 X1000 (1.2-3.4); LYMPH% 33.8 % (20.5-51.1); MCH 29.8 PG (27-31); MCHC 32.3 g/dL (33-37); MCV 92.3 FL (81-99); MONO# 1.01 X1000 (0.11-0.59); MONO% 17.5 % (1.7-9.3); MPV 9.7 FL (7.4-10.4); NEUT% 43.4 % (42.2-75.2); PLT 332 X1000 (130-400); RBC 3.49 XMIL (4.2-5.4)
[2017-04-29] MEDS ORDERED: PREDNISONE PO SCH (09:00)
[2017-04-29 09:24] VITALS: BP 163/80
[2017-04-29] MEDS: LASIX PO SCH (09:24)
[2017-04-29] MEDS: LIORESAL PO SCH (09:24)
[2017-04-29] MEDS: FERROUS SULFATE PO SCH (09:25)
[2017-04-29] MEDS: COZAAR PO SCH (09:25)
[2017-04-29] MEDS: SYNTHROID PO SCH (09:26)
[2017-04-29] MEDS: APRESOLINE PO SCH (09:26)
[2017-04-29] MEDS: NORVASC PO SCH (09:26)
[2017-04-29] MEDS: TRADJENTA PO SCH (09:26)
[2017-04-29] MEDS: DITROPAN XL PO SCH (09:26)
[2017-04-29] MEDS: TRICOR PO SCH (09:26)
[2017-04-29] MEDS: COREG PO SCH (09:27)
[2017-04-29 09:28] LABS: AGAP 14; BUN 64 mg/dL (8-22); CALCIUM 9.4 mg/dL (8.8-10.2); CHLORIDE 97 mmol/L (98-107); COSMO 301; POTASSIUM 4.3 mmol/L (3.5-5.1); SODIUM 142 mmol/L (136-145); TCO2 31 mmol/L (25-35)
--- NOTE | 2017-04-30 20:32 | DISCHARGE SUMMARY ---
ADMISSION DATE: 04/27/2017 DISCHARGE DATE: 04/29/2017 DISCHARGING DIAGNOSIS: Symptomatic anemia due to iron deficiency anemia with heme-positive stool with chronic gastrointestinal bleeding. SECONDARY DIAGNOSES: 1. Mild aortic valve stenosis. 2. Chronic kidney disease stage 4. Creatinine is 2.9. 3. Chronic diastolic heart failure. 4. Type 2 diabetes. 5. Metabolic syndrome. 6. Hypertension. 7. Osteoarthritis. 8. Hyperuricemia. 9. Hypothyroidism. 10. Sleep apnea. 11. Chronic respiratory failure due to Pickwickian syndrome using BiPAP machine. 12. Chronic sarcoidosis with interstitial fibrosis on prednisone. CONSULTS: Dr. Milner. PROCEDURES: 1. Transfusion of 2 units of packed RBCs. 2. Injectafer iron infusion 750 mg. BRIEF HISTORY: Please see the H and P that was done on 04/27/2017. In brief, she is a 71-year- old, pleasant, female, who was admitted to the hospital with recurrent GI bleeding, heme-positive stools and anemia. Hematocrit was 23, hemoglobin 7. She is very symptomatic. She is also suffering chronic kidney disease under the care of Dr. Dejesus. Dr. Milner was consulted. He recommended in light of previous EGD and colonoscopy were negative he is going to arrange outpatient capsule endoscopy. After transfusion her symptoms were much improved and at the time of discharge hematocrit was 32. LABS: CBC, white cell count 5.7, hematocrit 32, platelets 332,000. SMA 7 sodium 142, potassium 4.3, chloride 97, BUN 60, creatinine 3.9. DISCHARGE INSTRUCTIONS ARE FOLLOWS: 1. Tdap 01/18/2017. 2. Synthroid 100 mcg daily, Lasix 40 mg daily, amlodipine 10 mg daily, Ditropan 10 mg daily, Coreg 12.5 mg p.o. b.i.d., prednisone 5 mg every other day, losartan 100 mg daily, iron sulfate 325 mg daily. 3. Hold the aspirin. 4. Fenofibrate 160 mg daily, baclofen 5 mg p.o. b.i.d., hydralazine 50 mg t.i.d. Tradjenta 5 mg daily, Prilosec 20 mg daily. 5. Follow up in my office next week as well as Dr. Milner. cc: MD Dr. Alf Fernandez MD
== END 2017-04-29 10:57 | disposition home health service (06) ==
LOC: DIRADM 11:21 → 3N 13:48
PROVIDERS: ADMIT Internal Medicine; ATTEND Internal Medicine

== ENCOUNTER 2019-01-08 15:41 | Inpatient (IN) ==
--- NOTE | 2019-01-08 17:50 | Diag Imaging Result Doc PS360 ---
EXAM: CHEST-PORTABLE HISTORY: new onset CHF TECHNIQUE: Chest single view COMPARISON: 09/18/2018 FINDINGS: The lungs are well expanded. The heart is enlarged. The vessels are mildly distended. There are no infiltrates. No effusion identified. There are multiple calcified mediastinal and hilar lymph nodes with scattered granuloma IMPRESSION: Cardiomegaly with mild pulmonary edema. Electronically signed by Kalpesh Iglesias 01/08/2019 5:47 PM
[2019-01-08 19:46] LABS: BASO# 0.03 X1000 (0.0-0.2); BASO% 0.5 % (0.0-0.8); EOS# 0.12 X1000 (0.0-0.7); HEMATOCRIT 22.5 % (37.0-47.0); HEMOGLOBIN 7.1 g/dL (12.0-16.0); LYMPH# 2.45 X1000 (1.2-3.4); LYMPH% 41.8 % (20.5-51.1); MCH 29.2 PG (27-31); MCHC 31.6 g/dL (33-37); MCV 92.6 FL (81-99); MONO# 0.75 X1000 (0.11-0.59); MONO% 12.8 % (1.7-9.3); NEUT# 2.51 X1000 (1.4-6.5); NEUT% 42.9 % (42.2-75.2); PLT 224 X1000 (130-400); RBC 2.43 XMIL (4.2-5.4); RDW 17.5 % (11.5-14.5); WBC 5.86 X1000 (4.8-10.8)
[2019-01-08 19:50] LABS: INR 0.98; PROTIME 13.7 Seconds (11.0-16.0)
[2019-01-08 19:59] LABS: CALCIUM 8.7 mg/dL (8.8-10.2); CREATININE 4.9 mg/dL (0.5-0.9); POTASSIUM 4.3 mmol/L (3.5-5.1)
[2019-01-08 20:02] LABS: ALLEN TEST YES; BLOOD TYPE ARTERIAL; HCO3-(ACT) 26.5 mmoll (20.0-26.0); METHB 0.9 % (0.0-1.5); O2(CT) 10.7 mL/dL (15.0-23.0); O2HB 96.2 % (95.0-99.0); PCO2(98.6) 45 mmHg (35-45); PO2(98.6) 91 mmHg (60-100); SAMPLE BLOOD; SAO2 97.6 % (95.0-100.0); THB 7.8 g/dL (11.5-17.4); pH(98.6) 7.39 (7.35-7.45)
[2019-01-08 20:03] LABS: MODALITY CANNULA
[2019-01-08] MEDS: HUMULIN R SUBQ SCH (22:02)
[2019-01-08] MEDS: COREG PO SCH (22:03)
[2019-01-08] MEDS: APRESOLINE PO SCH (22:07)
[2019-01-09] MEDS: SYNTHROID PO SCH (07:10)
[2019-01-09] MEDS: PRILOSEC PO SCH (07:10)
[2019-01-09] MEDS: HUMULIN R SUBQ SCH ×4 (07:15→21:38)
--- NOTE | 2019-01-09 09:03 | HISTORY AND PHYSICAL ---
REASON FOR CONSULT: Complains of fatigue, dyspnea on exertion. HISTORY OF PRESENT ILLNESS: She is a 73-year-old female who came in my office for a followup. Patient was seen by Dr. Garcia recently for evaluation of aortic stenosis murmur. Echocardiography showed peak velocity 4.5, with peak gradient 84 mmHg and mean gradient is 50, consistent with severe aortic stenosis. She has a chronic anemia plus chronic kidney disease, almost end-stage renal failure waiting for renal replacement therapy. In the past, patient was adamant not to go for dialysis. Slowly she is leaning towards renal replacement therapy. Patient has been under the care of Dr. Dejesus. I spoke to Dr. Garcia about her symptoms and in light of her comorbid condition, admitted to the hospital and he wants to evaluate the EUGENIO for the aortic stenotic murmur. Obviously, she may need TAVR based on the findings. As a result, a hospital admission was warranted. PAST MEDICAL HISTORY: 1. Occult gastrointestinal bleeding with chronic anemia. 2. Negative GI workup in the past. 3. Aortic valve stenosis. 4. Stage 5 kidney disease. Creatinine is 5. 5. Diastolic heart failure. 6. Type 2 diabetes. 7. Metabolic syndrome. 8. Hypertension. 9. Osteoarthritis. 10. Hyperuricemia. 11. Hypothyroidism. 12. Sleep apnea. 13. Pickwickian syndrome, using BiPAP machine. 14. Chronic sarcoidosis with interstitial fibrosis on prednisone. PAST SURGICAL HISTORY: 1. Total knee arthroplasty on the left side. 2. Colon resection on the right side by Dr. Sierra. 3. History of AV fistula on the left side with ligation of left AV fistula branches x [address] Pereyra on 12/19/2018. MEDICINES: 1. Synthroid 100 mcg daily. 2. Lasix 40 daily. 3. Amlodipine 10 daily. 4. Coreg 12.5 p.o. b.i.d. 5. Prednisone 5 mg every other day. 6. Cozaar 100 daily. 7. Iron sulfate 325 mg daily. 8. Aspirin 81 mg daily. 9. Fenofibrate 160 daily. 10. Baclofen 5 mg p.o. b.i.d. 11. Hydralazine 50 t.i.d. 12. Tradjenta 5 mg daily. 13. Prilosec 20 daily. 14. Diprivan XL 10 mg daily. ALLERGIES: Not known. SOCIAL HISTORY: for 40 years with 3 children. No smoking. No alcohol. Retired. FAMILY HISTORY: Father of heart failure at 70. Mom of heart failure at 46. HEALTH MAINTENANCE: Last EGD/colonoscopy by Dr. Milner 2017. Flu vaccine 2018, pneumococcal 2017, Tdap 01/18/2017.HEENT: No headache, no vision problem. No earache. No sore throat. Neck: No goiter. No lymphadenopathy. No bruit. Cardiopulmonary: Dyspnea on exertion. No chest pain, PND, orthopnea. Gastrointestinal: No nausea, vomiting, abdominal pain. Bleeding per rectum. Genitourinary: No history of hesitancy, frequency, hematuria. Extremities: No swelling of feet. Back: No back pain. Neurologic: No focal symptoms or weakness. EXAMINATION: Vital Signs: Temp is 97.4, blood pressure is 160/135. HEENT Exam: Slightly pale. TMs are normal. Nose and throat within normal limits. Neck: Supple. No lymphadenopathy. JVD slightly elevated. Chest: Bilateral air entry. Heart: Sounds are regular with 3/6 systolic murmur in the aortic area radiating to the carotid. Abdomen: Belly is soft, obese, nontender. Good bowel sounds. No peripheral edema, cyanosis. Neurologic: No obvious neurological deficits. INVESTIGATIONS: CBC: White cell count 5.8, hematocrit 32.5, platelets 224,000. PT/INR is normal. ABG: pH is 7.39, pCO2 45, PO2 91, on 28%. SMA-7: Sodium 140, potassium 4.3, BUN 110, creatinine 5. CK is normal and proBNP 84,095. Chest x-ray: Cardiomegaly, mild pulmonary edema. ASSESSMENT AND PLAN: 1. A 73-year-old female admitted to the hospital with severe aortic stenosis with diastolic heart failure, worsening of anemia anti end-stage kidney disease. Plan is Dr. Garcia consult for EUGENIO. Based on that further recommendations will be followed. Probably TAVR and if she needs TAVR, she may need temporary dialysis. 2. Anemia, previous GI bleed. Previous GI workup was negative. We will transfuse as needed to maintain hematocrit around 30. 3. Reconcile home medicines. 4. Chronic sarcoidosis, stable. 5. Type 2 diabetes. Insulin sliding scale with Tradjenta. 6. After EUGENIO will give a slow blood transfusion and will follow up. cc: David Stovall MD
--- NOTE | 2019-01-09 09:18 | EKG Report ---
Test Performed on : 01/08/2019 7:32:44 PM Test Reason : chest pain Blood Pressure : / mmHG Vent. Rate : 063 BPM Atrial Rate : 063 BPM P-R Int : 224 ms QRS Dur : 096 ms QT Int : 414 ms P-R-T Axes : 058 -02 033 degrees QTc Int : 423 ms Sinus rhythm. with 1st degree AV block. Otherwise normal ECG When compared with ECG of 08-JAN-2019 19:31, (Unconfirmed) AR interval has increased Confirmed by Keyshawn JOE, Coy Larsen ([id number]) on 01/10/2019 10:18:24 AM
[2019-01-09] MEDS ORDERED: LASIX IV ONE (09:29)
[2019-01-09] MEDS: APRESOLINE PO SCH ×3 (11:16→18:50)
[2019-01-09] MEDS: ROCALTROL PO SCH (11:16)
[2019-01-09] MEDS: NORVASC PO SCH (11:16)
[2019-01-09] MEDS: TRADJENTA PO SCH (11:16)
[2019-01-09] MEDS: COREG PO SCH ×2 (11:17→21:38)
[2019-01-09] MEDS: ICAR-C PLUS PO SCH (11:17)
[2019-01-09] MEDS: LOFIBRA PO SCH (11:17)
--- NOTE | 2019-01-09 11:36 | CARDIOLOGY CONSULTATION ---
DATE: 01/09/2019 PROBLEM LIST: 1. Aortic stenosis. 2. Chronic renal failure. 3. Diabetes. HISTORY OF PRESENT ILLNESS: Ms. Gloria Gao is a 73-year-old lady who I had seen in the office recently, had an echocardiogram done which revealed severe aortic stenosis. Patient is admitted with increasing shortness of breath and also has noticed increasing mild pedal edema with episodes of paroxysmal nocturnal dyspnea. She does not complain of chest pain. She was seen in Dr. Stovall's office and subsequently admitted and plan to do a transesophageal echocardiogram and with the possibility of consideration for TAVR if indicated. She has not had any palpitations. There is no dizziness or syncope. There is no recent issue of any bleeding diathesis. She has a serum creatinine of 5 with a BUN of 92. She has a fistula in her left arm and Dr. Dejesus has been consulted for proceeding with hemodialysis. There is no orthopnea. REVIEW OF SYSTEMS: Gastrointestinal: There is no history of nausea, vomiting, or diarrhea. There is no history of hematemesis or melena. In the past, she has had occult blood noted. Central nervous system: No focal weakness to suggest a CVA or TIA. Genitourinary: There is no dysuria or hematuria. Respiratory System: There is no history of cough, expectoration, hemoptysis. There is no history of fevers or chills. PAST MEDICAL HISTORY: 1. Aortic stenosis. Recent echocardiogram revealed severe aortic stenosis with a peak velocity across the aortic valve of 4.5 m/sec, peak gradient of 84 mmHg, mean gradient of 50 mmHg with a calcified aortic valve. Preserved left ventricular systolic function. 2. Chronic renal failure. 3. History of anemia. 4. History of occult blood in the stools. Had colonoscopy on 01/11/2015 and upper GI endoscopy at that time as well. 5. Diabetes. 6. History of diastolic heart failure. 7. Hypertension. 8. Hyperuricemia. 9. Hypothyroidism. 10. Sleep apnea, Pickwickian syndrome. 11. History of chronic sarcoidosis with interstitial fibrosis. 12. Colonic resection on the right side. 13. History of AV fistula. HOME MEDICATIONS: 1. Synthroid 100. 2. Lasix 40. 3. Amlodipine 10. 4. Coreg 12.5 b.i.d. 5. Prednisone 5 every other day. 6. Cozaar 100 mg a day. 7. Iron sulfate. 8. Aspirin 81 mg a day. 9. Baclofen. 10. Hydralazine 50 t.i.d. 11. Tradjenta. 12. Prilosec. 13. Diprivan. SOCIAL HISTORY: She is for 40 years. Has 3 children. ALLERGIES: Not known. PHYSICAL EXAMINATION: Vital signs: On examination, blood pressure was 153/55. Cardiovascular: First and 2nd heart sounds were heard. There was a loud ejection systolic murmur. Respiratory System: Normal air entry. There was no crepitations or rhonchi. Abdomen: Soft, nontender. There was no guarding or rigidity. Bowel sounds were heard. Central nervous system: Alert and was moving all 4 extremities. Extremities: Trace edema. LABORATORY DATA: 1. CBC: WBC 5.8, hemoglobin 7.1, hematocrit 22.5, platelet count of 224,000. 2. Chemistry: Sodium 140, potassium 4.3, BUN 110, creatinine 4.9. When she was admitted creatinine was 5 with a proBNP of 8495, glucose 181. IMAGING: Chest x-ray revealed cardiomegaly with mild pulmonary edema. ASSESSMENT: Ms. Gloria Gao is a 73-year-old lady with history of chronic renal failure, has had a shunt in hand, history of diabetes hypertension, chronic sarcoidosis, hyperuricemia, hypothyroidism. Has severe aortic stenosis. As far as symptoms are concerned, she is short of breath and has had episodes of paroxysmal nocturnal dyspnea. No chest pain or syncope. Chest x-ray suggestive of heart failure. PLAN: 1. From a cardiac standpoint, we will give her a blood transfusion 1 unit in addition to Lasix 40 mg IV. 2. After that, we will plan for a transesophageal echocardiogram to assess aortic valve and she would be a likely candidate for transcatheter aortic valve replacement as well. We will make further recommendations after discussing with the aerial applicator pilot in [place]. 3. She has not been dialyzed and she has a fistula. So far she has been stable. However, her BUN is 110 and creatinine of 4.925. Given this, she may well need dialysis to be instituted. We will consult Dr. Dejesus, her barrel racer. 4. For diabetes, sarcoidosis and hypothyroidism, continue with home medications. Thank you for the consult. We will follow hospital course. cc: MD David Melton MD
[2019-01-09] MEDS ORDERED: NS 500 ML ONE (12:38)
[2019-01-09] MEDS ORDERED: NS 500 ML IV SCH (13:00)
[2019-01-09] MEDS ORDERED: SODIUM CHLORIDE 0.9% 10 ML ONE (13:17)
--- NOTE | 2019-01-09 19:41 | PROGRESS NOTE ---
DATE: 01/09/2019 SUBJECTIVE: The patient is resting well. No complaints. I appreciate Dr. Garcia's consult. PHYSICAL EXAMINATION: Vital signs: Temperature is 97.5 degrees, pulse 68, blood pressure is 163/45. General: Slightly pale. Neck: JVD slightly elevated. Chest: Bilateral air entry. Heart: Sounds are regular with a 3/6 systolic murmur in the aortic area. Abdomen: Belly is soft, nontender. Extremities: No edema noted. INVESTIGATIONS: Hemoglobin 7, hematocrit 22.5. PT/INR is normal. BUN is 110, creatinine 4.9. CK is normal. Chest x-ray: Cardiomegaly. ASSESSMENT AND PLAN: 1. Anemia due to chronic kidney disease. Iron profile in my office is normal. Continue 1 unit of packed RBC. Repeat the CBC in the morning. 2. End-stage kidney disease, waiting for renal replacement therapy. 3. Transesophageal echocardiogram has been postponed for tomorrow. 4. Continue present treatment for underlying medical problems. LEVEL OF DOCUMENTATION: 25 minutes. cc: David Stovall MD
--- NOTE | 2019-01-09 20:19 | NEPHROLOGY CONSULTATION ---
DATE: 01/09/2019 REASON FOR ADMISSION: Dyspnea on exertion with complaints of fatigue. REASON FOR CONSULTATION: Chronic kidney disease stage 5. CONSULTING PHYSICIAN: Corey Garcia MD HISTORY OF PRESENT ILLNESS: Ms. Gao is a 73-year-old female who is known to our outpatient services for chronic kidney disease stage 5. We have been following her on a monthly basis for her elevated BUN and creatinine. The patient has had a placement of an AV fistula to her left wrist followed by Dr. Pizarro with an appointment at [facility] for evaluation of vein mapping and re-evaluation of her fistula per Dr. Pizarro. At that time, daughter states that it was re-evaluated and cleaned out approximately 1 month ago. Unfortunately, the patient has been followed by Dr. Garcia secondary to aortic stenosis with a murmur. Her echocardiography showed a mean gradient of 50, consistent with severe aortic stenosis. She had had increased work of breathing with dyspnea on exertion. She has denied any fever or chills. No nausea, vomiting, or diarrhea. States that she has no symptoms of kidney failure outside of fatigue. The patient's hemoglobin upon admission was 7.1. She is currently receiving a unit of packed red blood cells. She denies any hematochezia, hemoptysis or hematuria. Dr. Stovall has admitted the patient for further monitoring and evaluation. Cardiology has been consulted. She is scheduled for a EUGENIO for aortic stenotic murmur in the a.m. PAST MEDICAL HISTORY: Chronic kidney disease stage 5. Her baseline creatinine has been running in the 5s. AV fistula to her left wrist, occult GI bleeding with chronic anemia secondary to chronic disease. Negative GI workup in the past. Aortic valve stenosis, diastolic heart failure, diabetes mellitus type 2, metabolic syndrome, hypertension, osteoarthritis, hyperuricemia, hypothyroidism, sleep apnea, Pickwickian syndrome using BiPAP machine at night, chronic sarcoidosis with interstitial fibrosis on prednisone. PAST SURGICAL HISTORY: Total knee arthroplasty on the left colon resection on the right side by Dr. Sierra, history of a left AV fistula with branches by Dr. Pereyra on 12/19/2018. SOCIAL HISTORY: She is . She lives with her spouse. She has family who are attentive to her care. She denies smoking, alcohol or illicit drug use. FAMILY HISTORY: Father of heart failure at 70. Mother of heart failure at 46. ALLERGIES: Listed as no known drug allergies. HOME MEDICATIONS: Synthroid, Lasix, amlodipine, Coreg, prednisone, Cozaar, iron sulfate, aspirin, fenofibrate, baclofen, hydralazine, Tradjenta, Prilosec and Diprivan. REVIEW OF SYSTEMS: Times 10 with pertinent positives listed above in the HPI PATIENT'S MOST RECENT VITAL SIGNS: Temperature 97.5 degrees, blood pressure 192/59, heart rate 53, respirations are 16. She is on 2 L nasal cannula. Last recorded saturation is 100%. She has had 240 mL in. The patient states that she has voided, but it has not been recorded. LABORATORY DATA: Sodium 140, potassium 4.3, chloride 104, CO2 24, BUN 110, creatinine 4.9, glucose of 95. Anion gap of 12. Her calcium is 8.7. BNP 8495. White count 5.86, hemoglobin 7.1, hematocrit 22.5 with a platelet count of 224. ABGs: pH 7.39, CO2 45, pO2 91, bicarb 26.5 on 2 L nasal cannula. IMAGING: The patient had a chest x-ray upon her admission indicating cardiomegaly with mild pulmonary edema. PHYSICAL EXAMINATION: General: This is a 73-year-old female. She is resting quietly in bed. She is currently receiving blood transfusion to the right forearm. She appears chronically ill. She is in no acute distress. Skin: Warm and dry. HEENT: Normocephalic, atraumatic. Conjunctivae are pale. She has KISHOR. Mucous membranes are dry. Neck: Supple. Trachea midline. She has trace JVD in the upright position. Cardiovascular: She is regular rate and rhythm. She has a systolic murmur. Lungs: Diminished breath sounds bilateral, remains on O2 supplementation. Abdomen: Large, obese, soft, nontender. Positive bowel sounds. Genitourinary: Not inspected. Patient has been voiding. No Garsia catheter is in place secondary to patient's request. Neurological: She is alert and oriented x3. Extremities: She has a fistula to the left wrist. This has good palpable thrill. It is short upon palpation, rather deep. Trace pretibial edema. No clubbing or cyanosis. ASSESSMENT AND PLAN: 1. Chronic kidney disease stage 5. The patient is preparing for hemodialysis in the near future. We have discussed possible need for hemodialysis during this hospitalization, unsure if her fistula is ready for use. We have discussed possible placement of dialysis tunnel catheter. Patient has stated that she will not have 1 at this time. Her daughter is at her bedside stating that they will do what they need to do along with her . 2. Aortic stenosis with diastolic heart failure. Patient has slight pulmonary edema on chest x- ray. Plans for EUGENIO per Dr. Gracia in the a.m. 3. Electrolytes. These are acceptable. 4. Acid-base balance. This is acceptable. 5. Anemia. She is currently receiving 1 unit of packed red blood cells. I would like to thank you for allowing us to follow with this patient. Dictated by JACK Hill for Genaro Dejesus MD Face to face encounter, data reviewed, discussed with Melanie Victoria on 01/09/19. I agree with the above assessment and plan of care. cc: JACK Hill MD Jagan Reddy, MD MTDD
[2019-01-10 07:15] LABS: HEMATOCRIT 28.6 % (37.0-47.0); MCH 29.7 PG (27-31); MCHC 31.5 g/dL (33-37); MCV 94.4 FL (81-99); MPV 10.3 FL (7.4-10.4); RBC 3.03 XMIL (4.2-5.4); RDW 17.7 % (11.5-14.5); WBC 5.02 X1000 (4.8-10.8)
[2019-01-10] MEDS ORDERED: D50W SYRINGE IV ONE (07:40)
[2019-01-10 07:52] LABS: CALCIUM 9.2 mg/dL (8.8-10.2); CREATININE 5.2 mg/dL (0.5-0.9); MAGNESIUM 1.9 mg/dL (1.5-2.7); POTASSIUM 4.4 mmol/L (3.5-5.1)
[2019-01-10] MEDS: HUMULIN R SUBQ SCH ×4 (07:55→16:49)
[2019-01-10] MEDS: PRILOSEC PO SCH (07:55)
[2019-01-10] MEDS: SYNTHROID PO SCH (07:55)
[2019-01-10] MEDS ORDERED: XYLOCAINE 2% VISCOUS ONE (12:00)
[2019-01-10] MEDS ORDERED: ANESTHESIA PB SET 88 IN 5742 ONE (12:09)
[2019-01-10] MEDS ORDERED: CLAVE TWINSITE 32 IN 11959 ONE (12:09)
[2019-01-10] MEDS ORDERED: NS 250 ML ONE (12:09)
--- NOTE | 2019-01-10 13:04 | CARDIOLOGY PROGRESS NOTE ---
DATE: 01/10/2019 SUBJECTIVE: The patient is resting well. Since her blood transfusion she feels better. She has shortness of breath which has been stable. Denies chest pain suggestive of angina. OBJECTIVE: Vital Signs: Blood pressure was 144/48. Cardiovascular: First and second heart sounds were heard. There was ejection systolic murmur. Lungs: There were a few scattered crepitations in the lungs. Abdomen: Soft and nontender. There was no guarding or rigidity. Bowel sounds were heard. Central nervous system: Alert and oriented. She was moving all 4 extremities. Extremities: Examination of extremities revealed trace edema. LABORATORY DATA: Sodium 144, potassium 4.4, BUN 111, creatinine 5.2, glucose 204. HEMATOLOGY: Post transfusion hemoglobin increased from 7.1 to 9.0, hematocrit 22.5 to 28.6. PROBLEM LIST: 1. Severe aortic stenosis for transesophageal echocardiogram today to assess the valve area by planimetry. Risks, benefits and alternatives were explained. The patient will proceed with transesophageal echocardiogram. 2. Anemia. 3. Chronic renal failure. Awaiting dialysis. Worsening in her BUN and creatinine. 4. History of diastolic heart failure. 5. Sarcoidosis with interstitial fibrosis. 6. Hypertension. 7. Diabetes. She is on multiple medications. Currently on all the medications I have not made any changes PLAN: Following her transesophageal echocardiogram she needs to be evaluated for TAVR; however, would prefer dialysis to be started in house during this hospitalization. I have discussed in detail with patients as well. I have informed Ella SANTIAGO that family wants to proceed with the dialysis via cath placement, as graft recently placed. I would like to make an in patient referral for TAVR once we start the dialysis. cc: MD David Melton MD [facility]ENTER[facility]or
--- NOTE | 2019-01-10 13:09 | ECHO REPORT ---
ORDER DATE: 01/10/2019 PROCEDURE PERFORMED: Transesophageal echocardiogram. SUMMARY: Informed consent was obtained from the patient. Intravenous access was already established. Patient was brought to the cardiac catheterization laboratory. Anesthesia was present. Please see detailed anesthesia records. The patient's oropharynx was anesthetized using first 1% Cetacaine spray. A transesophageal probe was easily passed through the esophagus. Ultrasound pictures were obtained. FINDINGS: 1. Normal left ventricular cavity size. Concentric left ventricular hypertrophy. Estimated ejection fraction of 60% to 65%. 2. Normal right ventricular cavity size and function. 3. Aortic valve leaflets were calcified, trileaflet by planimetry. Aortic valve area was 0.6 to 0.8 cm2 associated with mild aortic regurgitation. 4. Mitral valve leaflets are normal. There is mitral annular calcification associated with mild mitral regurgitation. 5. Pulmonic valve was normal. 6. Tricuspid valve was normal. There is mild tricuspid regurgitation. 7. Left atrium was normal. Left atrium appendage was normal. 8. Right atrium was normal. 9. Ascending aorta measured 3.7 cm. 10. Descending aorta had layered plaque. 11. There was no obvious intracardiac mass or thrombus seen. 12. There was trace pericardial effusion. There is no evidence of tamponade. CONCLUSIONS: 1. Normal left ventricular cavity size. Left ventricular hypertrophy. Estimated ejection fraction of 60% to 65%. 2. Severe aortic stenosis. Calcified aortic valve with aortic valve area of 0.6 to 0.8 cm2 by planimetry, associated with mild aortic regurgitation. cc: MD Suzie Melton PA Jagan Reddy, MD
--- NOTE | 2019-01-10 15:17 | NEPHROLOGY PROGRESS NOTE ---
DATE: 01/10/2019 TIME SEEN: 8:15 a.m. SUBJECTIVE: Ms. Gao is resting quietly in bed. States that she is having difficulty breathing. She was chilled during the night. OBJECTIVE: Her most recent vital signs are temperature 98.2, blood pressure 118/52, heart rate 52, respirations 14. The patient is currently on 2 L nasal cannula. Her last recorded saturation was 98%. She has had 610 in. She has had 400 mL out to void. Labs: Her sodium is 144, potassium 4.4, chloride is 106, CO2 25, BUN 111, creatinine 5.2, her glucose is 68, her anion gap is 13, her calcium is 9.2, magnesium 1.9. The patient has a hemoglobin of 9, with hematocrit of 28.6, white count 5.02, platelet count 229,000. She has a PT of 13.7 with an INR of 0.98. Physical Examination: General: This is a 73-year-old, female. She is resting quietly in bed. She appears chronically ill. She is in mild respiratory distress this a.m. Head of the bed is slightly elevated. Her O2 remains on. She is scheduled for a EUGENIO this a.m. per cardiology. HEENT: Normocephalic and atraumatic. Conjunctivae are pale pink. She has KISHOR. Mucous membranes are dry. Neck: Supple. Trachea midline. She has positive JVD. Cardiovascular: She is regular rate and rhythm. She has a soft systolic murmur. No gallop appreciated. Lungs: Have a few scattered crackles to her bilateral bases. She remains on O2 support. Abdomen: Large, round, soft, nontender. Positive bowel sounds. Genitourinary: Not inspected. Patient has voided adequate during the night. Extremities: She has trace to 1+ lower extremity edema. No clubbing or cyanosis. She has an AV fistula with a good palpable thrill to her left wrist. Neurological: She is alert and oriented to person and to place. ASSESSMENT AND PLAN: 1. Chronic kidney disease stage 5. The patient has an arteriovenous fistula to her left wrist, recently worked on, on December 19, [address] Vishnu Pizarro. We have indicated to the patient that if it is indicated after her transesophageal echocardiogram that she will need hemodialysis, that this fistula is not quite ready and she will require a hemodialysis tunneled catheter. The patient had shaken her head negatively this morning, though family states that they have understanding at the bedside. Her is not available this morning. 2. Electrolytes, acid-base balance, and anemia. Patient received 1 unit of packed red blood cells yesterday. This is stable. The rest remains acceptable. 3. Increased work of breathing. The patient's chest x-ray showed cardiomegaly with mild pulmonary edema upon admission. She had been given Lasix initially. I have spoken with Dr. Garcia. States that the patient is now in agreement for placement of dialysis tunneled catheter and starting of hemodialysis prior to discharge with possible transcatheter aortic valve replacement after dialysis has been initiated. I will discuss with the patient. We will discuss this with Dr. Dejesus. I would like to thank you for allowing us to follow with this patient condition. [id number] Addendum note: spoke to patient and about evaluation of AV fistula to left forearm by Dr. Pizarro. They state understanding that she may need a tunnel dialysis catheter placed for new start dialysis in am. CS Dictated by JACK Hill for Genaro Dejesus MD cc: JACK Hill MD Jagan Reddy, MD MTDD
[2019-01-10] MEDS: TRADJENTA PO SCH (16:04)
[2019-01-10] MEDS: PREDNISONE PO SCH (16:04)
[2019-01-10] MEDS: ROCALTROL PO SCH (16:04)
[2019-01-10] MEDS: LOFIBRA PO SCH (16:04)
[2019-01-10] MEDS: ICAR-C PLUS PO SCH (16:04)
[2019-01-10] MEDS: APRESOLINE PO SCH ×3 (16:04→20:15)
[2019-01-10] MEDS: NORVASC PO SCH (16:05)
[2019-01-10] MEDS: COREG PO SCH ×2 (16:05→20:15)
--- NOTE | 2019-01-10 19:52 | PROGRESS NOTE ---
DATE: 01/10/2019 SUBJECTIVE: The patient did receive 1 unit of packed RBCs. Iron profile was negative. Anemia is probably due to chronic kidney disease. Creatinine is 5.2. REVIEW OF SYSTEMS: Complains of dysphagia. OBJECTIVE: Vital Signs: Temperature is 97.3, pulse is 59, blood pressure is 117/49. General: The patient is sleeping. Chest: Clear. Heart: Sounds are regular with a 3/6 systolic murmur. Abdomen: Belly is soft, obese. Extremities: Trace edema. LABORATORY INVESTIGATIONS: CBC: White cell count 5, hematocrit 28, platelets 229,000. SMA 7: BUN 111, creatinine 5.2. ASSESSMENT AND PLAN: 1. Transesophageal echocardiogram findings noted. Ejection fraction is 60%, consistent with severe aortic stenosis. Needs a transcatheter aortic valve replacement. 2. Anemia due to chronic kidney disease, status post 1 unit of packed RBCs. Previous gastrointestinal workup was negative. 3. End-stage kidney disease waiting for dialysis. 4. Hypertension and heart disease on amlodipine, Coreg, and hydralazine. 5. Type 2 diabetes on Tradjenta. 6. History of sarcoidosis on prednisone. 7. Hyperlipidemia on fenofibrate. 8. Hypothyroidism on Synthroid. 9. Intermittent dysphagia. We need workup after the transesophageal echocardiogram and we will discuss with the family the plan of care. Appreciated consultants Dr. Dejesus and Dr. Garcia. LEVEL OF DOCUMENTATION: Is 25 minutes. cc: David Stovall MD
--- NOTE | 2019-01-10 20:19 | GENERAL SURGERY PROGRESS NOTE ---
DATE: 01/10/2019 SUBJECTIVE: We were asked to see the patient for evaluation of her left forearm fistula and placement of a tunneled dialysis catheter. Upon chart review, the patient has been admitted with shortness of breath on exertion and found to have severe aortic stenosis. In addition, she has stage 5 chronic kidney disease, and Dr. Dejesus feels she needs dialysis urgently this admission as well as Dr. Garcia. There are plans for transfer to another facility for aortic valve replacement in the near future, but dialysis is needed first. She recently had a left wrist AV fistula placed by Dr. Pereyra in September of this year and then ligation of side branches in November of this year. OBJECTIVE: Vital Signs: Temperature 97 degrees, pulse 59, respirations 12, blood pressure 177/49, O2 saturation 99%. General: She is awake and alert. No acute distress. Respiratory: Bilateral breath sounds. No work of breathing. Extremities: Her left wrist fistula was examined. There is a palpable thrill, but the overall size of the fistula seems small. LABORATORY: White blood cell count 5, hemoglobin 9, hematocrit 28.6, platelet count 229,000. Sodium 144, potassium 4.4, chloride 106, BUN 111, creatinine 5.2, glucose 68. ASSESSMENT AND PLAN: A 73-year-old female with stage 5 chronic kidney disease, shortness of breath, and severe aortic stenosis. We will place a tunneled dialysis catheter tomorrow, either myself or Dr. Pereyra, her dialysis access surgeon. I discussed the risks and benefits with her including bleeding, infection, malfunction of the catheter, pneumothorax, and other imponderables. She understands and agrees to proceed. cc: MD David Rincon MD
[2019-01-11] MEDS: HUMULIN R SUBQ SCH ×5 (00:18→22:45)
[2019-01-11] MEDS: APRESOLINE PO SCH ×4 (00:19→19:28)
[2019-01-11] MEDS: SYNTHROID PO SCH (06:18)
[2019-01-11] MEDS: PRILOSEC PO SCH (06:19)
[2019-01-11] MEDS ORDERED: NS 2,000 ML MISC PRN (06:49)
[2019-01-11] MEDS ORDERED: HEPARIN IV PRN (06:49)
[2019-01-11] MEDS ORDERED: TIGHT: 0.2 ML/HR FOR DIALYSIS MISC PRN (06:49)
--- NOTE | 2019-01-11 08:36 | PROGRESS NOTE ---
DATE: 01/11/2019 SUBJECTIVE: Patient was seen by Dr. Pizarro. The left arm AV graft is not well matured for dialysis. Patient is willing to go for tunneled catheter. I appreciate Dr. Pizarro's consult and reviewed his report. Currently denies any chest pain, shortness of breath. Did receive 1 unit of packed RBCs. PHYSICAL EXAMINATION: VITAL SIGNS: Temp is 97.8 degrees, pulse 57, blood pressure is 119/62. GENERAL: Slightly pale. LUNGS: Bilateral air entry. HEART: Sounds are regular. 3/6 systolic murmur. ABDOMEN: Belly is soft, nontender. There were no labs today. ASSESSMENT AND PLAN: 1. End-stage kidney disease, waiting for dialysis tunneled catheter by Dr. Pizarro. 2. Status post AV graft, not matured well for dialysis. 3. Severe aortic stenosis as per Dr. Garcia for TAVR. Probably she might need left heart cath as well and continue present treatment. 4. Follow up on the pending labs. Level of documentation is 25 minutes. cc: David Stovall MD
[2019-01-11] MEDS: ROCALTROL PO SCH (08:39)
[2019-01-11] MEDS: LOFIBRA PO SCH (08:40)
[2019-01-11] MEDS: COREG PO SCH ×2 (08:40→20:57)
[2019-01-11] MEDS: ICAR-C PLUS PO SCH (08:40)
[2019-01-11] MEDS: TRADJENTA PO SCH (08:40)
[2019-01-11] MEDS: NORVASC PO SCH (08:40)
[2019-01-11 08:52] LABS: BASO# 0.02 X1000 (0.0-0.2); BASO% 0.4 % (0.0-0.8); EOS# 0.06 X1000 (0.0-0.7); EOS% 1.2 % (0.0-10.0); HEMATOCRIT 26.6 % (37.0-47.0); HEMOGLOBIN 8.5 g/dL (12.0-16.0); LYMPH# 1.89 X1000 (1.2-3.4); LYMPH% 36.7 % (20.5-51.1); MCH 29.5 PG (27-31); MCV 92.4 FL (81-99); MONO# 0.52 X1000 (0.11-0.59); MONO% 10.1 % (1.7-9.3); MPV 10.4 FL (7.4-10.4); NEUT# 2.66 X1000 (1.4-6.5); NEUT% 51.6 % (42.2-75.2); PLT 235 X1000 (130-400); RBC 2.88 XMIL (4.2-5.4); WBC 5.15 X1000 (4.8-10.8)
[2019-01-11 09:28] LABS: ALBUMIN 2.7 g/dL (3.5-5.0); CALCIUM 8.6 mg/dL (8.8-10.2); CREATININE 4.7 mg/dL (0.5-0.9); PHOSPHORUS 5.3 mg/dL (2.7-4.5); POTASSIUM 4.4 mmol/L (3.5-5.1)
[2019-01-11] MEDS ORDERED: KEFZOL 1 GM/D5W 1 GM/50 ML IVPB IV ONE (10:00)
[2019-01-11] MEDS ORDERED: XYLOCAINE 1%/EPI 1:100,000 ONE (14:07)
[2019-01-11] MEDS ORDERED: NS 250 ML ONE (14:07)
--- NOTE | 2019-01-11 15:14 | CARDIOLOGY PROGRESS NOTE ---
DATE: 01/11/2019 PROBLEM LIST: 1. Severe aortic stenosis with a peak gradient of 84 mmHg. Mitral valve area 0.6 to 0.8 sq cm. Mean gradient of 50 mmHg with aortic regurgitation. 2. Chronic renal failure. 3. History of diastolic heart failure. 4. Admitted with anemia, heart failure, status post 1 unit blood transfusion. 5. Hypothyroidism. 6. Hyperuricemia. 7. Chronic sarcoidosis with interstitial fibrosis. 8. Colon resection on the right side. 9. Diabetes mellitus. 10. Hypothyroidism. 11. The patient was seen today. Does not complain of chest pain. She has a left AV graft not mature for dialysis. She is going to have a tunnel catheter placed today. She denies chest pain. Her shortness of breath is better. PHYSICAL EXAMINATION: Vital Signs: Blood pressure 119/62. Cardiovascular: Ejection systolic murmur conducted to carotids. Respiratory: Normal air entry. There are no crepitations or rhonchi. Abdomen: Soft, nontender. There was no guarding or rigidity. Bowel sounds were heard. Central Nervous System: Alert and oriented. Was moving all 4 extremities. Extremities: Revealed trace edema. LABORATORY EXAMINATION: Revealed sodium 139, potassium 4.4, BUN 106, creatinine 4.7. Hemoglobin and hematocrit 8.5 and 26, platelet count of 235,000. RECOMMENDATIONS: 1. She is going to have a tunnel catheter placed for dialysis starting likely tomorrow. 2. From a cardiac standpoint, I have not made any changes. Once she has a couple of treatments of dialysis next week we will discuss with [place] quencher operator to for transfer to [facility] as an inpatient for consideration of TAVR. For the present, would recommend continuing medications. We will also follow with CBC to make sure she is not dropping her hemoglobin and hematocrit. Thank you. We will follow the hospital course. cc: MD Davdi Melton MD
--- NOTE | 2019-01-11 15:51 | NEPHROLOGY PROGRESS NOTE ---
DATE: 01/11/2019 SUBJECTIVE: Patient resting in bed. She is waiting to go for a procedure to have dialysis catheter placed. OBJECTIVE: Vital Signs: Temperature 97.4 degrees, pulse 66, respiratory rate 18, blood pressure 150/56. Intake 240 mL; output none. General: An elderly female, resting in bed. Awake and alert. She does not appear in any distress. HEENT: Normocephalic, atraumatic. KISHOR. Neck: Supple. Trace JVD. Cardiovascular: Regular rate and rhythm with a systolic murmur. Pulmonary: She is clear bilaterally. She has no wheeze noted today. Abdomen: Soft, positive bowel sounds. Genitourinary: Not inspected. Voiding. Extremities: 1+ edema. No clubbing, cyanosis. Integumentary: Skin is warm and dry. LAB DATA: WBC of 5.1, hemoglobin 8.5. Sodium 139, potassium 4.4, CO2 23, creatinine 4.7, calcium 5.3 and albumin 2.7. ASSESSMENT AND PLAN: 1. Chronic kidney disease 5 D. Patient is going to go have a tunnel dialysis catheter placed secondary to her arteriovenous fistula to the left wrist that is not available for use yet. The patient is in agreement to go to surgery, have this placed, and understands she will have a short dialysis treatment afterward. 2. Electrolytes, acid-base balance, anemia. These are stable. She has received a unit of packed red blood cells while in the hospital. Continue to monitor. 3. Shortness of breath. Again, we will dialyze and pull fluid as needed. Dictated by JACK Swan for Genaro Dejesus MD cc: MD David Benson MD
[2019-01-11] MEDS ORDERED: MARCAINE 0.25% PF ONE (16:24)
--- NOTE | 2019-01-11 19:51 | OPERATIVE NOTE ---
PROCEDURE DATE: 01/11/2019 PREOPERATIVE DIAGNOSIS: End-stage renal disease. POSTOPERATIVE DIAGNOSES: End-stage renal disease. SURGEON: Mayte Pereyra MD. PROCEDURES PERFORMED: 1. Ultrasound-guided right internal jugular vein tunneled catheter placement, 18 cm tip to curve. 2. Fluoroscopy less than 1 hour. ANESTHESIA: General. INDICATIONS: This is a 73-year-old female who has had CKD for some time. She has progressed to need hemodialysis related to volume issues. OPERATIVE FINDINGS: Ultrasound of the right neck showed a large compressible internal jugular vein with no thrombus. Final fluoroscopic image showed good position of the catheter in the superior vena cava-atrial junction with no kinking of the catheter. No pneumothorax. OPERATIVE NOTE: Risks, benefits, alternatives discussed with the patient. She consented to the procedure. She was seen preoperatively, and the surgical site was confirmed. She was taken to the operating room and placed in the supine position and general anesthesia induced. Her bilateral neck and chest were prepped with Betadine and draped in usual fashion. After a time- out, focused ultrasound of the right neck was performed, and the internal jugular vein was accessed on the first pass. Dark nonpulsatile venous blood was noted on return. The wire threaded easily and was confirmed to be on the right side of the heart. We then made an incision 2 fingerbreadths below the clavicle and tunneled an 18 cm [id number] [employer] catheter incision through the incision made larger in the neck. We serially dilated the tract and then placed a peel-away introducer sheath, advancing the catheter, and peeled the sheath away. It was in good position. Both ports bibi blood and flushed without resistance. We flushed with dilute heparinized saline. We closed the incision in the neck and placed a pursestring around the exit site with 4 Monocryl, secured the catheter with a nylon suture. Sterile caps and dressings were applied with Dermabond to the neck. She tolerated it well. Was awoken and transferred to recovery. I spoke to family. cc: MD David Oneill MD
[2019-01-11] MEDS: NORCO-5 PO PRN (20:55)
[2019-01-12] MEDS: NORCO-5 PO PRN ×2 (02:02→19:44)
[2019-01-12] MEDS: PRILOSEC PO SCH (07:04)
[2019-01-12] MEDS: SYNTHROID PO SCH (07:04)
[2019-01-12 07:31] LABS: ALBUMIN 2.6 g/dL (3.5-5.0); CALCIUM 8.2 mg/dL (8.8-10.2); CREATININE 4.2 mg/dL (0.5-0.9); PHOSPHORUS 4.2 mg/dL (2.7-4.5); POTASSIUM 4.1 mmol/L (3.5-5.1)
[2019-01-12] MEDS: HUMULIN R SUBQ SCH ×4 (08:04→22:22)
[2019-01-12] MEDS ORDERED: TIGHT: 0.2 ML/HR FOR DIALYSIS MISC PRN (09:57)
[2019-01-12] MEDS ORDERED: HEPARIN IV PRN (09:57)
[2019-01-12] MEDS ORDERED: NS 2,000 ML MISC PRN (09:57)
[2019-01-12] MEDS: ROCALTROL PO SCH (10:03)
[2019-01-12] MEDS: ICAR-C PLUS PO SCH (10:04)
[2019-01-12] MEDS: PREDNISONE PO SCH (10:04)
[2019-01-12] MEDS: LOFIBRA PO SCH (10:04)
[2019-01-12] MEDS: APRESOLINE PO SCH ×3 (10:04→17:06)
[2019-01-12] MEDS: COREG PO SCH ×2 (10:04→22:22)
[2019-01-12] MEDS: TRADJENTA PO SCH (10:04)
[2019-01-12] MEDS: NORVASC PO SCH (10:05)
[2019-01-12 12:21] LABS: HEPATITIS PROFILE ACUTE SEE COMMENTS
--- NOTE | 2019-01-12 20:05 | PROGRESS NOTE ---
DATE: 01/12/2019 SUBJECT: The patient is doing better. She is not offering any dysphagic symptoms. REVIEW OF SYSTEMS: None reported. Had dialysis yesterday and she has some pain of the tunnel catheter. She is willing to go for dialysis as well as TAVR. PHYSICAL EXAMINATION: Temperature is 97 degrees, pulse 59, blood pressure stable. Slightly pale .Chest: Bilateral air entry. Tunnel catheter was placed. Heart: Sounds are regular with 3/6 systolic murmur in the aortic area. Belly is soft, nontender, obese. No obvious deficits. INVESTIGATIONS: SMA 7. BUN 68, creatinine 4.2 and hepatitis panel was negative. ASSESSMENT AND PLAN: 1. History of sarcoidosis on prednisone. 2. Chronic anemia due to kidney disease status post 1 unit of packed RBC. 3. Symptomatic aortic stenosis to be transferred to [place] for transcatheter aortic valve replacement once she is medically stable. 4. Hypertension, heart disease. Continue present treatment. Diabetes is stable. The patient is going for dialysis tomorrow. Continue present treatment over the weekend. We will discuss with Dr. Garcia about possible transfer to [facility] next week. LEVEL OF DOCUMENTATION: 25 minutes. cc: David Stovall MD
--- NOTE | 2019-01-12 20:55 | NEPHROLOGY PROGRESS NOTE ---
DATE: 01/12/2019 SUBJECTIVE: Patient resting in bed. She states that her breathing is better, and she had no trouble with dialysis yesterday. OBJECTIVE: Vital Signs: Temperature 97.9, pulse 59, respiratory rate 18, blood pressure 173/54. Intake 845 mL. Output 1.5 L. General: Elderly female, resting in bed. Awake, alert, in no acute distress. HEENT: Normocephalic, atraumatic. KISHOR. Neck: Supple. No JVD. Cardiovascular: Regular rhythm. Has a systolic murmur. Pulmonary: She is clear bilaterally. Abdomen: Soft, positive bowel sounds. : Not inspected. Extremities: No clubbing, cyanosis. Trace edema. Integumentary: Skin is warm and dry. Tunneled dialysis catheter site with no new drainage. LAB DATA: Sodium of 141, potassium of 4.1, CO2 of 27, creatinine of 4.2. ASSESSMENT AND PLAN: 1. Chronic kidney disease 5D. Today will be day number 2 for dialysis. We will dialyze on a 2 K bath/1-2 L fluid removal, 3 hour treatment. I will probably go ahead and dialyze her on Tuesday to get a full 3 treatments in this week and then next week she would be set up to initiate 6-ltp-a-week routine dialysis treatment. 2. Aortic stenosis. She is being followed by Cardiology. Their plan is to transfer her to [place] probably at the beginning of next week for consideration of a transcatheter aortic valve replacement. We agree with this and will try to achieve a improved renal status with the patient over the next day or so. 3. Electrolytes and acid-base balance. These are acceptable. Dictated by JACK Swan for Genaro Dejesus MD cc: MD David Benson MD
--- NOTE | 2019-01-12 21:01 | NEPHROLOGY PROGRESS NOTE ---
DATE: 01/12/2019 SUBJECTIVE: The patient currently undergoing hemodialysis. She has no complaints. OBJECTIVE: Vital Signs: Temperature 97.4 degrees, pulse 59, respiratory 24, blood pressure 146/66. Intake 2.1 L. Output 2.2 L. General: Elderly female, resting in bed. No acute distress. HEENT: Normocephalic, atraumatic. KISHOR. Oral mucosa moist. Neck: Supple. No JVD. Cardiovascular: Regular rate and rhythm. No murmur or gallop. Pulmonary: Clear bilaterally. No increased work of breathing. Equal excursion. Abdomen: Soft. Positive bowel sounds. : Not inspected. Extremities: Trace to 1+ edema. Integumentary: Skin is warm and dry. Tunneled dialysis catheter site clean, dry, and intact. LAB DATA: Sodium 132, potassium 5.8, CO2 24, creatinine 3.8. ASSESSMENT AND PLAN: 1. Acute kidney injury with acute interstitial nephritis. We have discontinued nephrotoxic medications and initiated prednisone. The patient will follow up with our office in just a little over a week so that we can finalize our plan for treatment. In the interim we will continue her dialysis. She has had her hepatitis titer drawn. She has a date and time next week to initiate dialysis if she is discharged. 2. Electrolytes, acid-base balance, anemia. These are acceptable. 3. Lymphoma, followed by hematology. 4. Urinary tract infection. No change to current medications. Dictated by JACK Swan for Genaro Dejesus MD cc: MD David Benson MD [facility]
[2019-01-13] MEDS: CATAPRES PO PRN (00:44)
[2019-01-13] MEDS ORDERED: D50W SYRINGE IV PRN (04:24)
[2019-01-13] MEDS: PRILOSEC PO SCH (06:42)
[2019-01-13] MEDS: SYNTHROID PO SCH (06:42)
[2019-01-13] MEDS: HUMULIN R SUBQ SCH ×4 (06:43→22:13)
[2019-01-13] MEDS ORDERED: HEPARIN IV PRN (07:47)
[2019-01-13] MEDS ORDERED: TIGHT: 0.2 ML/HR FOR DIALYSIS MISC PRN (07:47)
[2019-01-13] MEDS ORDERED: NS 2,000 ML MISC PRN (07:47)
[2019-01-13 10:31] LABS: ALBUMIN 2.5 g/dL (3.5-5.0); CALCIUM 7.6 mg/dL (8.8-10.2); CREATININE 1.9 mg/dL (0.5-0.9); PHOSPHORUS 2.3 mg/dL (2.7-4.5); POTASSIUM 3.2 mmol/L (3.5-5.1)
[2019-01-13] MEDS: ICAR-C PLUS PO SCH ×2 (14:07→15:13)
[2019-01-13] MEDS: APRESOLINE PO SCH ×2 (14:07→15:13)
[2019-01-13] MEDS: COREG PO SCH ×2 (15:13→22:23)
[2019-01-13] MEDS: NORVASC PO SCH (15:13)
[2019-01-13] MEDS: LOFIBRA PO SCH (15:13)
[2019-01-13] MEDS: TRADJENTA PO SCH (15:15)
[2019-01-13] MEDS: ROCALTROL PO SCH (15:15)
--- NOTE | 2019-01-13 19:27 | PROGRESS NOTE ---
DATE: 01/13/2019 SUBJECTIVE: The patient had dialysis yesterday, doing very well. REVIEW OF SYSTEMS: None reported. OBJECTIVE: On examination, temperature is 98 degrees, pulse 58, blood pressure is stable. HEENT exam within normal limits. Tunnel catheter on the right side noted. Chest is clear. Heart sounds are regular, with 2/6 systolic murmur in the aortic area. Belly is soft, obese. No edema noted. INVESTIGATIONS: None reported today. ASSESSMENT AND PLAN: 1. Endstage kidney disease, on hemodialysis as per Dr. Dejesus. 2. Symptomatic aortic stenosis, waiting for transcatheter aortic valve replacement next week. Dr. Garcia will make arrangements to be transferred to [place]. 3. Hypertension and heart disease, stable. 4. Diabetes, stable. 5. Sarcoidosis, on prednisone. Continue present treatment. Level of documentation 25 minutes. cc: David Stovall MD
[2019-01-13] MEDS: NORCO-5 PO PRN (22:23)
[2019-01-14] MEDS: CATAPRES PO PRN (03:32)
[2019-01-14] MEDS: APRESOLINE PO SCH ×4 (03:33→18:03)
[2019-01-14] MEDS: HUMULIN R SUBQ SCH ×4 (06:50→22:18)
[2019-01-14] MEDS: SYNTHROID PO SCH (06:53)
[2019-01-14] MEDS: PRILOSEC PO SCH (06:53)
[2019-01-14 07:02] LABS: ALBUMIN 2.6 g/dL (3.5-5.0); CALCIUM 7.9 mg/dL (8.8-10.2); CREATININE 2.5 mg/dL (0.5-0.9); PHOSPHORUS 3.2 mg/dL (2.7-4.5); POTASSIUM 3.9 mmol/L (3.5-5.1)
[2019-01-14] MEDS: PREDNISONE PO SCH (08:06)
[2019-01-14] MEDS: COREG PO SCH ×2 (08:07→22:06)
[2019-01-14] MEDS: ICAR-C PLUS PO SCH (08:07)
[2019-01-14] MEDS: TRADJENTA PO SCH (08:07)
[2019-01-14] MEDS: LOFIBRA PO SCH (08:07)
[2019-01-14] MEDS: ROCALTROL PO SCH (08:07)
[2019-01-14] MEDS: NORVASC PO SCH (08:07)
--- NOTE | 2019-01-14 08:12 | CARDIOLOGY PROGRESS NOTE ---
DATE: 01/13/2019 SUBJECTIVE: Ms. Gao recently came back from dialysis. She has no chest pain complaints. No orthopnea. She is tolerating dialysis reasonably well. PHYSICAL EXAMINATION: Vital Signs: She is afebrile. Heart rate of 56. Her blood pressures continue to be quite elevated with most in the 140s to 180s over the last several hours. General: She is in no acute distress. Cardiovascular: She is in a regular rate and rhythm. She has a 2/6 systolic murmur at the right upper sternal border that is crescendo/decrescendo. She has no lower extremity edema. Chest: Sounds clear bilaterally. She has no increased work of breathing. Abdomen: Soft and nontender. PERTINENT LABORATORY DATA: Sodium is 139, potassium 3.2, BUN is 21, with creatinine of 2.9. ASSESSMENT: Ms. Gao is a 73-year-old black female with severe aortic stenosis, end-stage renal disease. PLAN: Dr. Garcia will be back on Tuesday, and tentative plans will be to transfer over to [facility] for aortic stenosis evaluation for possible TAVR. cc: MD David Kent MD
--- NOTE | 2019-01-14 15:14 | PROGRESS NOTE ---
DATE: 01/14/2019 SUBJECTIVE: Patient is feeling well this afternoon. There is no chest pain. Appetite is good. OBJECTIVE: Vital Signs: Stable with temperature 98.1 degrees, heart rate 61, respirations 16, blood pressure 120/58. O2 saturation on nasal oxygen 100%. LABORATORY: Sodium 140, potassium 3.9, BUN 19, creatinine 2.5, glucose 119, albumin 2.6, calcium 7.9, phosphorus 3.2. ASSESSMENT AND PLAN: The patient has endstage renal disease requiring hemodialysis and had a recent jugular catheter placed. She has aortic stenosis and is scheduled to go to [place] for procedure and aortic valve replacement. Arrangements will be made by Dr. Garcia and Dr. Stovall tomorrow. cc: MD David Capellan MD
--- NOTE | 2019-01-14 16:20 | CARDIOLOGY PROGRESS NOTE ---
DATE: 01/14/2019 SUBJECTIVE: Ms Gao has no complaints today. Her edema has improved. She is tolerating oral intake. PHYSICAL EXAMINATION: Vital signs: Afebrile, heart rate 61, blood pressure 120/58. General: She is in no acute distress. Cardiovascular: She sounds to be in a regular rate and rhythm. She has a 2 to 3 out of 6 systolic murmur at the right upper sternal border. She has no lower extremity edema. Chest exam: Clear bilaterally. No increased work of breathing. PERTINENT DATA: Her sodium 140, potassium 3.9, BUN 19, creatinine 2.5. Albumin is 2.6. ASSESSMENT: Murray Casey is a 73-year-old female with end-stage renal disease. PLAN: Tentative plans are to transfer her over tomorrow or early this coming week for a TAVRA evaluation. cc: MD David Kent MD
--- NOTE | 2019-01-14 16:41 | NEPHROLOGY PROGRESS NOTE ---
DATE: 01/14/2019 SUBJECTIVE: Patient is resting in bed. She states that dialysis went okay yesterday. OBJECTIVE: Vital Signs: Temperature 98.2 degrees, pulse 61, respiratory rate 16, blood pressure 177/70. Intake 1.1 L. Output 1.0 L UF removal on dialysis. General: This is an elderly female, resting in bed. She is in no acute distress. HEENT: Normocephalic, atraumatic. Oral mucosa moist. Dentition poor. Neck: Supple without JVD. Cardiovascular: Regular rate and rhythm. Systolic murmur noted. Pulmonary: She is clear bilaterally. Abdomen: Soft. Positive bowel sound. : Not inspected. Extremities: No clubbing, cyanosis, edema. integumentary: Skin is warm and dry. LABS: Sodium 140, potassium 3.9, CO2 31, creatinine 2.5, albumin 2.6. ASSESSMENT AND PLAN: Chronic kidney disease 5D. She is dialyzed 3 days in a row. Her next dialysis is scheduled for Tuesday. We will evaluate labs and see if we can determine cardiology's plan as far as transfer to [place]. We can we will go ahead and dialyze her early Tuesday morning. However, if she needs to transfer to [place] Tuesday, we may forego that if her labs are acceptable. We have not had any issues over the weekend with her potassium or CO2 and it appears that we had her about as dry as we were going to get her with ultrafiltration. Dictated by JACK Swna for Genaro Dejesus MD cc: MD David Benson MD
[2019-01-15] MEDS ORDERED: NS 2,000 ML MISC PRN (06:25)
[2019-01-15] MEDS ORDERED: TIGHT: 0.2 ML/HR FOR DIALYSIS MISC PRN (06:25)
[2019-01-15] MEDS ORDERED: HEPARIN IV PRN (06:25)
[2019-01-15] MEDS: PRILOSEC PO SCH (06:30)
[2019-01-15] MEDS: SYNTHROID PO SCH (06:30)
[2019-01-15] MEDS: HUMULIN R SUBQ SCH ×4 (06:46→21:26)
[2019-01-15 07:05] LABS: ALBUMIN 2.7 g/dL (3.5-5.0); CALCIUM 8.3 mg/dL (8.8-10.2); CREATININE 3.6 mg/dL (0.5-0.9); PHOSPHORUS 4.1 mg/dL (2.7-4.5); POTASSIUM 3.8 mmol/L (3.5-5.1)
[2019-01-15] MEDS ORDERED: HUMULIN R SUBQ SCH (08:28)
[2019-01-15 10:17] LABS: HEMATOCRIT 24.4 % (37.0-47.0); HEMOGLOBIN 7.4 g/dL (12.0-16.0); MCH 28.9 PG (27-31); MCHC 30.3 g/dL (33-37); MCV 95.3 FL (81-99); MPV 11.2 FL (7.4-10.4); RBC 2.56 XMIL (4.2-5.4); RDW 16.1 % (11.5-14.5); WBC 7.08 X1000 (4.8-10.8)
--- NOTE | 2019-01-15 10:29 | CARDIOLOGY PROGRESS NOTE ---
DATE: 01/15/2019 PROBLEM LIST: 1. Severe aortic stenosis with a peak gradient of 84 mmHg, aortic valve area of 0.6 to 0.8 cm2 with a mean gradient of 50 mmHg, associated with mild aortic regurgitation. 2. Chronic renal failure, on dialysis, started during this hospitalization. 3. Diastolic heart failure. 4. Anemia, status post blood transfusion of 1 unit. 5. Hypothyroidism. 6. Hyperuricemia. 7. Chronic sarcoidosis with interstitial fibrosis. 8. Colonic resection on the right side in the past. 9. Diabetes. 10. Hypothyroidism. 11. Patient is being dialyzed. Feels well. Her shortness of breath has improved. Does not complain of chest pain. PHYSICAL EXAMINATION: Blood pressure this morning was 160/80. Cardiovascular System: First and second heart sounds were heard. Ejection systolic murmur noted. Respiratory System: Normal air entry. A few scattered wheezes. Abdomen was soft, nontender. There was no guarding or rigidity. Bowel sounds were heard. Central Nervous System: Alert and was moving all 4 extremities. LABORATORY EXAMINATION: Revealed sodium 134, potassium 3.8, BUN 35, creatinine down to 3.6. BUN down from 110 to 35 post dialysis. Hematology: Hemoglobin on was 8.5, hematocrit 26, platelet count of 235,000. PLAN: 1. We will order a CBC today. 2. As far as antihypertensive medications are concerned, she is on amlodipine 10 mg a day, Coreg 12.5 b.i.d., clonidine, hydralazine 100 mg p.o. t.i.d. Her blood pressure was elevated. However, she has not received her morning medications. 3. Diabetes. Continue with the current medications. 4. She has anemia, chronic, and she is on iron supplements. I have not made any changes. 5. Hypothyroidism. Continue with her he medications. 6. As far as her severe aortic stenosis is concerned, I will discuss with the commercial fisherman in [place] and hopefully plan for in-house transfer to [facility] when bed is available and after I discuss with the commercial fisherman. cc: MD David Melton MD
[2019-01-15] MEDS: TRADJENTA PO SCH (13:27)
[2019-01-15] MEDS: NORVASC PO SCH (13:27)
[2019-01-15] MEDS: LOFIBRA PO SCH (13:27)
[2019-01-15] MEDS: COREG PO SCH ×2 (13:27→21:55)
[2019-01-15] MEDS: NORCO-5 PO PRN (13:28)
[2019-01-15] MEDS: ICAR-C PLUS PO SCH (13:28)
[2019-01-15] MEDS: APRESOLINE PO SCH ×3 (13:28→17:27)
[2019-01-15] MEDS: ROCALTROL PO SCH (13:28)
--- NOTE | 2019-01-15 16:55 | NEPHROLOGY PROGRESS NOTE ---
DATE: 01/15/2019 SUBJECTIVE: She is on dialysis. She states her appetite is good. She has been minimally active. Shortness of breath and swelling are improved. OBJECTIVE: Vital Signs: Blood pressure 178/57, heart rate 66, respirations 16, afebrile. General: No acute distress. Skin: Warm and dry. Neck: Neck veins are not appreciated. Heart: Regular with systolic murmur. Lungs: Equal. No crackles. Abdomen: Soft, nontender. Bowel sounds present. Extremities: With perhaps 1+ edema. No clubbing or cyanosis. IMPRESSIONS: 1. Chronic kidney disease stage 5D. Electrolytes and acid-base are in target. She is receiving dialysis today using a 3 potassium bath with a goal of 3 L ultrafiltration. 2. Anemia. Hemoglobin 7.4 today. She may need a transfusion with her next dialysis. 3. Aortic valve disease. Plan to transfer to [place]. cc: MD David Benson MD
--- NOTE | 2019-01-15 19:11 | PROGRESS NOTE ---
DATE: 01/15/2019 SUBJECTIVE: The patient is doing better and waiting to be transferred to [place]. The patient had dialysis 3 days in a row. No dysphagia. OBJECTIVE: Vital signs: Temperature is 98 degrees, pulse is 57, vitals are stable. HEENT Exam: Within normal limits. A tunnel catheter on the right side. Chest: Clear. Cardiovascular: Heart sounds are regular and 3/6 systolic murmur. Abdomen: Belly is soft, nontender. Obese. Extremities: No peripheral edema. INVESTIGATIONS: CBC: White cell count 7, hematocrit 24, platelets 199,000. SMA 7: Sodium 134, potassium 3.8, BUN 35, creatinine 3.6. ASSESSMENT AND PLAN: 1. Severe aortic stenosis, waiting to be transferred to [place]. 2. End-stage kidney disease on dialysis. 3. Anemia. Patient is going to get blood transfusion next dialysis. 4. Hypertension, heart disease. Amlodipine 10 mg daily, Coreg 12.5 b.i.d., hydralazine 100 t.i.d., clonidine as needed. 5. Type 2 diabetes, stable. 6. Hepatitis profile is negative and continue present treatment and will be transferred to [place] when a bed is available. LEVEL OF DOCUMENTATION: 25 minutes. cc: David Stovall MD
[2019-01-16] MEDS: HUMULIN R SUBQ SCH ×3 (06:45→16:50)
[2019-01-16] MEDS: SYNTHROID PO SCH (06:51)
[2019-01-16] MEDS: PRILOSEC PO SCH (06:51)
[2019-01-16 07:02] LABS: ALBUMIN 2.9 g/dL (3.5-5.0); CREATININE 3.1 mg/dL (0.5-0.9); PHOSPHORUS 3.5 mg/dL (2.7-4.5); POTASSIUM 3.9 mmol/L (3.5-5.1)
[2019-01-16] MEDS: APRESOLINE PO SCH ×3 (08:46→17:18)
[2019-01-16] MEDS: COREG PO SCH (08:47)
[2019-01-16] MEDS: ROCALTROL PO SCH (08:47)
[2019-01-16] MEDS: PREDNISONE PO SCH (08:47)
[2019-01-16] MEDS: NORVASC PO SCH (08:47)
[2019-01-16] MEDS: TRADJENTA PO SCH (08:47)
[2019-01-16] MEDS: LOFIBRA PO SCH (08:47)
[2019-01-16] MEDS: ICAR-C PLUS PO SCH (08:47)
--- NOTE | 2019-01-16 11:31 | CARDIOLOGY PROGRESS NOTE ---
DATE: 01/16/2019 SUBJECTIVE: The patient was seen today does not complain of chest pain or shortness of breath. She feels fairly well. There are no palpitations. OBJECTIVE: Vital signs: Blood pressure was 153/58. Cardiovascular: Jugular venous pressure was normal. First and second heart sounds were heard. There was ejection systolic murmur. Respiratory: Normal air entry. There are no crepitations and rhonchi. Abdomen: Soft, nontender. There was no guarding or rigidity. Bowel sounds were heard. Central nervous system: Alert and oriented. Was moving all 4 extremities. Extremities: No pedal edema. She has a catheter for dialysis. LABORATORY EXAMINATION: Sodium 133, potassium 3.9, BUN 31, creatinine 3.1. When she was admitted, her BUN was 111, creatinine of 5.2. Dialysis has been started. CURRENT MEDICATIONS: Include: 1. Amlodipine 10 mg a day. 2. Calcitriol 0.5 mg daily. 3. Coreg 12.5 mg twice a day. 4. Clonidine p.r.n. 5. Fenofibrate 160 mg p.o. daily. 6. Hydralazine 100 mg p.o. t.i.d. 7. Insulin as directed. 8. Levothyroxine 100 mcg. 9. Tradjenta 5 mg p.o. daily. 10. Omeprazole 40. 11. Prednisone 5 mg every other day. PROBLEM LIST: 1. End-stage renal disease. Dialysis 2. Instituted during this hospitalization. 3. Severe aortic stenosis. We will transfer her to [facility] for further evaluation and consideration of valve replacement of the aortic valve. Risks, benefits and alternatives were explained. Patient is willing to be transferred and undergo procedures 4. Diabetes. Continue with her current medications. 5. Hypertension. Blood pressures are better controlled. Continue with the current medications. 6. Diastolic heart failure, stable. I have not made any changes. 7. Anemia status post 1 unit blood transfusion. Labs are stable at the present time. 8. She has history of sarcoidosis, is on steroids. I have not made any changes. cc: MD David Melton MD [facility]
--- NOTE | 2019-01-16 13:57 | NEPHROLOGY PROGRESS NOTE ---
DATE: 01/16/2019 SUBJECTIVE: She is feeling better today. She states her swelling is resolved. No shortness of breath, nausea or vomiting. OBJECTIVE: Vital Signs: Blood pressure 162/65, heart rate 70, respirations 21. Afebrile. General: No acute distress. Skin: Warm and dry. Conjunctivae are pink. Neck: Neck veins are approximately 6 cm with no hepatojugular reflux. Heart: Regular with systolic murmur. Lungs: Equal. No crackles. Abdomen: Soft, nontender. Bowel sounds present. Extremities: No edema, clubbing or cyanosis. IMPRESSION: Chronic kidney disease 5D. Still modestly hypervolemic but significantly improved. No dialysis today. Okay for transfer from my perspective. cc: MD David Benson MD
[2019-01-16 16:40] VITALS: BP 151/50
--- NOTE | 2019-01-20 21:22 | DISCHARGE SUMMARY ---
ADMISSION DATE: 01/08/2019 DISCHARGE DATE: 01/16/2019 TRANSFER DIAGNOSIS: Symptomatic, severe aortic stenosis. Estimated aortic valve area less than 1 cm2. SECONDARY DIAGNOSES: 1. Anemia due to chronic kidney disease. 2. End-stage kidney disease, on temporary dialysis. 3. Diastolic heart failure due to hypertension as well as Pickwickian syndrome. 4. Type 2 diabetes. 5. Hypertension. 6. Osteoarthritis. 7. Gout. 8. Hypothyroidism. 9. Sleep apnea on BiPAP machine. 10. Chronic sarcoidosis with interstitial fibrosis on prednisone. 11. Other problems: 12. Arteriovenous fistula graft on the left forearm. 13. Total knee arthroplasty on the left side. 14. History of colon resection on the right side by Dr. Sierra. CONSULTS: 1. Dr. Vishnu Pizarro. 2. Dr. Kurt Dejesus. 3. Dr. Corey Garcia. PROCEDURES: 1. Transfusion of packed RBCs x2. 2. Temporary dialysis. 3. Tunneled catheter on the right side of the subclavian. 4. Transesophageal echocardiography on 01/10/2019. Left ventricular hypertrophy. Estimated EF 60% to 65%. Severe aortic stenosis. BRIEF HISTORY: Please see the H and P that was done on 01/08/2019. In brief, she is a 73-year- old female with hypertension, aortic stenosis, and chronic kidney disease stage 5, waiting for dialysis, who came in my office with shortness of breath on exertion, fatigue. The patient was found to have severe aortic stenosis with exertional shortness of breath and dizziness. HOSPITAL COURSE: The patient was given blood transfusion and subsequently started on temporary dialysis. After she was hemodynamically stable, the patient had a EUGENIO done. The findings corroborated severe aortic stenosis. Dr. Garcia did transfer to [facility] for TAVR, and the rest of the hospital course was uneventful. At the time of discharge, the labs were as follows. CBC: White cell count 7, hematocrit 25, platelets of 199,000. SMA-7: Sodium 133, potassium 3.9, BUN 31, creatinine 3.1, glucose 145. Hepatitis panel was negative. DISCHARGE MEDICATIONS: Synthroid 100 mcg daily. Amlodipine 10 daily. Diprivan XL 10 mg daily. Coreg 12.5 p.o. b.i.d. Prednisone 5 mg every other day. Losartan 100 mg daily. Fenofibrate 160 daily. Calcitriol 0.5 mcg daily. Hydralazine 100 t.i.d. Prilosec 40 mg daily. Icar-C Plus 1 tablet daily. Tradjenta 5 mg daily. Colace 100 p.o. b.i.d. Baclofen 10 5 mg b.i.d. DISPOSITION: 1. Transferred to [facility] for transcatheter aortic valve replacement. 2. Tdap Boostrix was given 01/18/2017. cc: David Stovall MD
== END 2019-01-16 19:19 | disposition short-term general hospital (02) | DRG 291 ==
LOC: DIRADM 15:41 → 4N 17:07
PROVIDERS: ADMIT Internal Medicine; ATTEND Internal Medicine
CPT/HCPCS: 36430; 71010; 71045; 77001; 80048; 80069; 80074; 82550; 82805; 82948; 83735; 83880; 85025; 85027; 85610; 86850; 86900; 86901; 86920; 93005; 93010; 93312; 94761; A9270; C1750; J0690; J1644; J1940; J7030; J7040; J7050; J7506; J7512; P9016; S0020; XXXXX

== ENCOUNTER 2019-04-28 21:14 | Inpatient (IN) ==
[2019-04-28] MEDS ORDERED: APRESOLINE IV ONE (22:31)
[2019-04-28] MEDS ORDERED: ZOFRAN IV ONE (22:36)
[2019-04-28 23:22] LABS: BASO# 0.02 X1000 (0.0-0.2); BASO% 0.2 % (0.0-0.8); EOS# 0.03 X1000 (0.0-0.7); EOS% 0.3 % (0.0-10.0); HEMATOCRIT 45.3 % (37.0-47.0); HEMOGLOBIN 14.9 g/dL (12.0-16.0); IMM GRAN# 0.03 X1000 (0.0-0.04); IMM GRAN% 0.3 % (0.0-0.5); LYMPH% 19.3 % (20.5-51.1); MCH 30.9 PG (27-31); MCHC 32.9 g/dL (33-37); MONO# 1.27 X1000 (0.11-0.59); MONO% 10.7 % (1.7-9.3); MPV 9.9 FL (7.4-10.4); NEUT# 8.26 X1000 (1.4-6.5); NEUT% 69.2 % (42.2-75.2); PLT 113 X1000 (130-400); RBC 4.82 XMIL (4.2-5.4); RDW 18.8 % (11.5-14.5); WBC 11.91 X1000 (4.8-10.8)
[2019-04-28 23:59] LABS: ALB/GLOB RATIO 1.3; ALBUMIN 3.8 g/dL (3.5-5.0); CALCIUM 10.2 mg/dL (8.8-10.2); CREATININE 5.6 mg/dL (0.5-0.9); POTASSIUM 5.8 mmol/L (3.5-5.1); TOTAL BILIRUBIN 0.3 mg/dL (0.20-1.00); TOTAL PROTEIN 6.7 g/dL (6.3-8.3)
[2019-04-29 00:16] LABS: URINE SOURCE CLEAN CATCH
[2019-04-29 00:43] LABS: BILIRUBIN URINE NEGATIVE (NEGATIVE); BLOOD URINE NEGATIVE (NEGATIVE); COLOR STRAW; GLUCOSE URINE NEGATIVE (NEGATIVE); KETONE URINE NEGATIVE (NEGATIVE); LEUKOCYTES URINE NEGATIVE (NEGATIVE); NITRITE URINE NEGATIVE (NEGATIVE); PROTEIN URINE 300 mg/dL (NEGATIVE); TURBIDITY URINE CLEAR (CLEAR); UR EPITHELIAL CELLS <10 /HPF (<10); URINE BACTERIA NEGATIVE /HPF; URINE RBC <10 /HPF (<10); URINE WBC <10 /HPF (<10); UROBILINOGEN URINE NORMAL (NORMAL)
[2019-04-29] MEDS ORDERED: KAYEXALATE PO ONE (00:52)
[2019-04-29] MEDS ORDERED: NORCO-10 PO ONE (01:00)
[2019-04-29] MEDS ORDERED: LABETALOL IV ONE (01:57)
[2019-04-29] MEDS ORDERED: NORFLEX IV ONE (01:57)
[2019-04-29] MEDS ORDERED: PHENERGAN IM ONE (02:10)
--- NOTE | 2019-04-29 04:11 | PROVIDER DOCUMENTATION ---
This chart was entered by Yanira Gonzáles Scribe, acting as scribe for Genevieve Serna MD. HPI-General Adult - General Chief Complaint: Nausea/Vomiting Stated Complaint: NAUSEATED, VOMITING (ON DIALYSIS) Time Seen by Provider: 04/28/19 21:40 Source: patient, family Allergies/Adverse Reactions: Patient Allergies Allergy/AdvReac Type Severity Reaction Status Date / Time No Known Allergies Allergy Verified 12/19/18 10:33 Home Medications: Home Medication List Medication Instructions Recorded Confirmed Last Taken Type Amlodipine [Norvasc] 10 mg PO DAILY 05/15/13 02/23/19 02/23/19 06:00 History Carvedilol [Coreg] 12.5 mg PO BID 05/15/13 02/23/19 02/23/19 06:00 History Levothyroxine [Synthroid] 100 microgm PO DAILY 05/15/13 02/23/19 02/23/19 06:00 History Oxybutynin E.r. [Ditropan Xl] 10 mg PO DAILY 05/15/13 02/23/19 02/23/19 06:00 History Prednisone 5 mg PO EVERY OTHER DAY 05/15/13 02/23/19 02/23/19 06:00 History Losartan [Cozaar] 100 mg PO DAILY 08/08/14 02/23/19 02/23/19 06:00 History Fenofibrate 160 mg PO DAILY 10/26/15 02/23/19 02/23/19 06:00 History Calcitriol 0.5 mcg PO DAILY 09/13/17 02/23/19 02/23/19 06:00 History Hydralazine [Apresoline] 100 mg PO TID 09/13/17 02/23/19 02/23/19 06:00 History Omeprazole 40 mg PO DAILY 09/13/17 02/23/19 02/23/19 06:00 History Iron,Carbonyl/Vit C/Vit B12/FA 1 each PO DAILY 10/17/18 02/23/19 02/23/19 06:00 History [Iron 100 Plus Tablet] Linagliptin [Tradjenta] 5 mg PO DAILY 12/14/18 02/23/19 02/23/19 06:00 History Docusate Sodium [Colace] 100 mg PO BID #30 cap 12/19/18 02/23/19 02/02/19 06:00 Rx Hydrocodone/Acetaminophen [[place] 1 ea PO Q6H PRN PRN #20 tab 12/19/18 02/23/19 02/09/19 06:00 Rx 5-325 Tablet] Baclofen 5 mg PO BID PRN 01/08/19 02/23/19 02/23/19 06:00 History Furosemide 40 mg PO DAILY 02/23/19 02/23/19 02/23/19 06:00 History - History of Present Illness -Gen Adult Nature of Presenting Problems: 73 yobf presents w/ at bedside w/cc constipation on , took milk of magnesium, had "bowels running" since, pt sts today has body aches all over, left arm pain at fistula site, cough occ and vomiting. pt followed by Dr. Stovall, Luisana and Suha. pt dialyzes on , sts pt missed dialysis on tuesday due to being sick. pt takes norcos for pain and states that the pain medication is not helping her. pt is afebrile, no dysuria, and no chills. States that she has a history of gout and thinks that her arm pain might be gout because she was feeling good on Tuesday and ate a bunch of foods she shouldnt have. pt recently has fistula placed. pt and are poor historians. Location of Pain/Injury: reports: generalized Pain Radiation: reports: no radiation Severity: reports: mild Onset/Duration: reports: 2 days ago Timing: reports: still present Context/Activities at Onset: reports: none Modifying Factors: improves with: nothing Associated Symptoms: reports: arm pain (left), constipation (), cough, muscle aches, vomiting. denies: diarrhea, shortness of breath, pain with inspiration Review of Systems - Adult - REVIEW OF SYSTEMS - ADULT Constitutional: reports: no symptoms reported. denies: chills, fever, fatique Eyes: reports: no symptoms reported Ears, Nose, Mouth & Throat: reports: no symptoms reported Cardiovascular: reports: no symptoms reported. denies: chest pain, orthopnea, palpitations Respiratory: reports: see HPI, cough. denies: pleurisy, shortness of breath, wh eezing Gastrointestinal: reports: see HPI, constipation, vomiting. denies: hematemesis, diarrhea, poor appetite Genitourinary: reports: no symptoms reported. denies: dysuria, frequency, incontinence Musculoskeletal: reports: see HPI, muscle aches (generalized). denies: back pain, muscle weakness, neck pain Integumentary: reports: no symptoms reported Neurological: reports: no symptoms reported Psychiatric: reports: no symptoms reported Endocrine: reports: no symptoms reported Hematologic/Lymphatic: reports: no symptoms reported Allergic/Immunologic: reports: no symptoms reported All Other Systems: Reviewed and Negative Past History - Adult - PAST MEDICAL HISTORY-ADULT Review of Records: reports: Old Records Reviewed, Nursing Assessment Review, Medications Reviewed, Social history reviewed & non-contributory. Major Childhood Illnesses: reports: denies history Cardiovascular: reports: CHF, HTN Respiratory: reports: COPD Gastrointestinal: reports: denies history Obstetrical/Gynecological: reports: denies history Genitourinary: reports: dialysis, kidney disease Musculoskeletal: reports: denies history Neurological: reports: denies history Endocrine/Immune: reports: Diabetes, thyroid disorder Other Conditions: reports: denies history - PRIOR SURGERIES/PROCEDURES Surgical/Procedure History: reports: bowel surgery (partial colectomy), orth opedic (extremity), joint replacement - IMMUNIZATION STATUS Childhood Immunizations: See Nurse Assessment Flu Vaccine: See Nurse Assessment - FAMILY HISTORY Family History: reviewed, not pertinent - SOCIAL HISTORY Smoking: non-smoker Substance Use: none/never Physical Exam-General - PHYSICAL EXAM-ADULT Initial Vital Signs Reviewed: Yes - CONSTITUTIONAL General Appearance: alert, mild distress. negative: cachetic, lethargic, slow to respond - EYES Eyes: PERRL/EOMI, pink conjunctivae - HEAD, EARS, NOSE, MOUTH & THROAT HENMT: normocephalic/atraumatic - NECK Neck: supple, normal inspection - RESPIRATORY Respiratory: chest non-tender, no accessory muscle use, decreased breath sounds - CARDIOVASCULAR Cardiovascular: normal peripheral pulses, regular rate, rhythm, systolic murmur - GASTROINTESTINAL (ABDOMEN) Abdominal Exam: normal bowel sounds, soft, tenderness (mild diffusely). negative: distended - LYMPHATIC Lymphatic: no adenopathy - MUSCULOSKELETAL Back Exam: normal inspection, no CVA tenderness, no vertebral tenderness Extremity: normal range of motion, non-tender, normal inspection, no pedal edema , other (left arm fistula in place) Peripheral Pulses: radial (R): 2+, radial (L): 2+ - SKIN Integumentary: normal color, normal turgor, warm/dry - NEUROLOGIC Neurologic: grossly normal, no motor/sensory deficits - PSYCHIATRIC Psych/Mental Status: normal mood/affect, normal thought content, normal thought process, oriented x 3 Progress - PLAN OF CARE/RESULTS Progress/Plan/Lab Results: Vital Signs - 8 hr 04/28/19 21:36 Temperature 98.1 F Pulse Rate 71 Respiratory Rate 17 Blood Pressure 222/102 O2 Sat by Pulse Oximetry 96 After multiple reeval we were unable to bring patient's BP down. She continued to fluctuate complaints because no abd pain, vs having abd pain vs arm pain vs neck pain vs headache. We tried multiple different medications to bring BP down and help patient's pain but nothing seemed to help. CT abd pelvis was ordered and showing concern for possible left renal neoplasm. Other labs showing K to 5.8 and patient given kayexalate. Spoke to Dr Martinez about admission given that all these symptoms could be due to patient not dialyzing on Tuesday and given that this is a holiday weekend likely will not get dialysis on Tuesday either. He accepted patient for admission. Further orders to be placed by their team. Result Diagrams: 04/28/19 23:05 04/28/19 23:05 - XRAY 1 XRAY Study: Chest (interstitial pulm edema) - CT/MRI 1 CT Study: Abdomen (Moderate gastric luminal distention suggesting gastroparesis. COmplex structure of left kidney for which neoplasm will require exclusion. Mild right colonic constipation. Right renal cyst 19mm) Departure - Departure Date of Disposition Decision: 04/29/19 Time of Disposition Decision: 03:50 DIAGNOSIS: Abdominal pain, ESRD (end stage renal disease) on dialysis, Severe uncontrolled hypertension, Diabetes mellitus, Hyperkalemia, Noncompliance with renal dialysis Disposition: ADMITTED INPATIENT 09 Certified Medical Emergency: Emergent Condition: Fair Referrals and Follow-Ups: Ismael Stovall MD [Primary Care Provider] - - Critical Care Note This patient required my direct & personal management of CC.: Yes Total Time (mins): 120 Critical Care Statement: This patient required my direct personal management to treat or rule out processes, the absence of which, could potentiallly result in sudden, clinically significant life or limb threatening deterioration. Attestation - Physician/ AISHA Attestation Patient care was provided by Advanced Practice Provider:: No The physician spent face to face time with patient:: Yes Advanced Practice Provider documentation review:: Supervising physician onsite and consulted in the evaluation and care of this patient. The physician did have a face to face encounter with the patient. This chart was documented by the indicated scribe, (Yanira Gonzáles Scribe) and accurately reflects the services I performed and decisions made by me, Genevieve Davis MD, as attested by the provider's signature.
[2019-04-29] MEDS ORDERED: NITROGLYCERIN TOP ONE (05:26)
--- NOTE | 2019-04-29 05:48 | HISTORY AND PHYSICAL ---
PRIMARY CARE PHYSICIAN: Dr. Stovall. CHIEF COMPLAINT: Altered mental status, abdominal pain, not feeling well. HISTORY OF PRESENTING ILLNESS: A 73-year-old female with a history of end-stage renal disease on renal dialysis Tuesday, Tuesday, Tuesday, CHF, sarcoidosis, hypertension, diabetes mellitus type 2, who was brought to the emergency department by family members due to patient being confused and not feeling well, and complained of abdominal pain. She was evaluated in the emergency department. She was moderately altered, and most of the history is obtained from family members. As per family, she is becoming more confused and delirious over the past several days. The patient had, apparently, missed dialysis on Tuesday and they did not know if it was contributing to some of her symptoms. PAST MEDICAL HISTORY: Includes end-stage renal disease on renal dialysis Tuesday, Tuesday, Tuesday, CHF, sarcoidosis, hypertension, hyperlipidemia, diabetes mellitus type 2. PAST SURGICAL HISTORY: Right knee surgery, colon surgery, left upper extremity fistula, heart valve placement. ALLERGIES: No known drug allergies. CURRENT MEDICATIONS: Include amlodipine 10 mg p.o. daily, baclofen 5 mg p.o. b.i.d., carvedilol 12.5 mg p.o. b.i.d., fenofibrate 160 mg p.o. daily, furosemide 40 mg p.o. daily, hydralazine 100 mg p.o. t.i.d., [place] 5 one p.o. q.6 hours, levothyroxine 100 mcg p.o. daily, Tradjenta 5 mg p.o. daily, losartan 100 mg p.o. daily, omeprazole 40 mg p.o. daily, oxybutynin 10 mg p.o. daily, prednisone 5 mg p.o. every other day. SOCIAL HISTORY: She is a former smoker. No history of alcohol or illicit drug use. FAMILY HISTORY: No history of coronary disease. REVIEW OF SYSTEMS: Unable to obtain due to patient being mildly confused. PHYSICAL EXAMINATION: GENERAL: The patient is resting comfortably, however, she is moderately confused. VITAL SIGNS: Temperature 98.1 degrees, pulse 71, respirations 17, blood pressure 222/102. HEENT: Atraumatic, normocephalic. PERRLA. NECK: No masses. CHEST: Bibasilar rales. CARDIOVASCULAR: Regular rate and rhythm. ABDOMEN: Soft. Positive bowel sounds. EXTREMITIES: No edema. NEUROLOGIC: She is awake and alert; however, she is moderately confused. GENITOURINARY: No bladder distention. SKIN: Warm. LABORATORIES AND STUDIES: WBCs 11.91, hemoglobin 14.9, hematocrit 45.3, platelets 113,000. Sodium 137, potassium 5.8, chloride 98, CO2 is 26, BUN is 71, creatinine is 5.6. Glucose is 121. UA is negative. ASSESSMENT: This is a 73-year-old female with a history of end-stage renal disease, congestive heart failure, sarcoidosis, hypertension, diabetes mellitus type 2, who apparently had missed her dialysis session. She was brought to the emergency department, she was moderately altered, and due to presenting symptoms, she will require admission for further management. 1. Altered mental status, multifactorial. 2. Hypertensive urgency. 3. End-stage renal disease, missed dialysis session. 4. Diabetes mellitus type 2. PLAN: 1. We will admit patient to P[facility]. 2. Continue with neuro checks. 3. We will consult Nephrology for dialysis. 4. We will monitor blood pressure. Resume antihypertensive agent. 5. Monitor blood glucose and put patient on sliding scale insulin regimen. 6. We will put patient on heparin for DVT prophylaxis. 7. We will continue to follow and reassess, make further recommendation based on patient's clinical course. cc: MD David Garibay MD
[2019-04-29] MEDS ORDERED: ZOFRAN IV PRN (06:39)
[2019-04-29] MEDS: HEPARIN SUBQ SCH ×2 (07:02→21:25)
[2019-04-29] MEDS: HUMULIN R SUBQ SCH ×4 (07:02→21:26)
--- NOTE | 2019-04-29 08:40 | Diag Imaging Result Doc PS360 ---
EXAM: CHEST-PORTABLE INDICATION: cough TECHNIQUE: One view COMPARISON: 04/21/2019 FINDINGS: The right Vas-Cath is in stable position. No new consolidations are identified. There is still probably mild pulmonary venous congestion. There is stable cardiomegaly. IMPRESSION: Stable chest. Electronically signed by Delfin Gonzáles 04/29/2019 8:37 AM
[2019-04-29] MEDS: APRESOLINE PO SCH ×5 (09:07→21:28)
[2019-04-29] MEDS: COZAAR PO SCH (09:07)
[2019-04-29] MEDS: NORVASC PO SCH (09:08)
[2019-04-29] MEDS: COREG PO SCH ×2 (09:08→21:26)
[2019-04-29] MEDS: TYLENOL PO PRN (09:23)
[2019-04-29] MEDS ORDERED: SODIUM CHLORIDE 0.9% INJ PRN (09:53)
[2019-04-29] MEDS: PHENERGAN IV PRN (10:00)
[2019-04-29] MEDS: DILAUDID IV PRN ×3 (10:00→23:09)
[2019-04-29] MEDS ORDERED: LIORESAL PO PRN (10:01)
--- NOTE | 2019-04-29 12:09 | Diag Imaging Result Doc PS360 ---
EXAM: CT ABDOMEN/PELVIS W/O CONTRAST INDICATION: abd pain, nausea, vomiting, dialysis pt TECHNIQUE: This exam was performed using automated exposure control, adjustment of mA or kV according to patient size, and/or use of iterative reconstruction technique. COMPARISON: None. FINDINGS: There are bulky calcified mediastinal and hilar lymph nodes indicating prior granulomatous disease. There is subsegmental atelectasis at the lung bases. There has been prior aortic valvuloplasty and the heart is mildly prominent. The spleen is atrophic. The liver, gallbladder, pancreas, and adrenal glands are grossly unremarkable as imaged with unenhanced CT. There are calcified mesenteric lymph nodes and calcified lymph nodes in the upper abdomen suggesting prior granulomatous disease. There is a complex macrolobulated cystic structure associated with the left kidney measuring up to 3.7 cm. There are a few other cystic appearing foci bilaterally. There is mild perinephric fat stranding bilaterally that is probably chronic. The urinary bladder is grossly unremarkable. There is excessive motion artifact which limits fine details of the bowel. No discrete bowel wall thickening or bowel obstruction is identified. There are a few colonic diverticula with no evidence of diverticulitis. There is moderate gastric luminal distention suggesting possible gastroparesis. The remainder of the GI tract is grossly unremarkable as imaged. The reproductive tract is obscured by excessive motion artifact. There is aortoiliac atherosclerotic calcification. There is no evidence of acute osseous abnormality. IMPRESSION: 1.Moderate gastric luminal distention suggesting possible gastroparesis. 2.Complex cystic structure associated with the left kidney that is nonspecific. Consider follow-up with contrast enhanced CT if not contraindicated. Otherwise, ultrasound follow-up would be recommended. 3.Other incidental/nonacute findings detailed above. Electronically signed by Delfin Gonzáles 04/29/2019 12:07 PM
--- NOTE | 2019-04-29 12:12 | Diag Imaging Result Doc PS360 ---
EXAM: CT HEAD W/O CONTRAST INDICATION: AMS TECHNIQUE: This exam was performed using automated exposure control, adjustment of mA or kV according to patient size, and/or use of iterative reconstruction technique. COMPARISON: 09/13/2017 FINDINGS: There is no definite acute infarct given the limited sensitivity of CT versus MRI. There is no discrete intracranial mass, mass effect, or intracranial hemorrhage. The surrounding soft tissues and bony structures are essentially unremarkable. IMPRESSION: No evidence of acute intracranial pathology. Electronically signed by Delfin Gonzáles 04/29/2019 12:10 PM
[2019-04-29] MEDS ORDERED: APRESOLINE PO SCH (13:00)
[2019-04-29] MEDS: APRESOLINE IV PRN (16:14)
--- NOTE | 2019-04-29 18:23 | NEPHROLOGY CONSULTATION ---
DATE: 04/29/2019 REASON FOR CONSULTATION: ESRD/dialysis. HISTORY OF PRESENT ILLNESS: Ms. Gao is a 73-year-old woman who is well known to me. She has multiple medical problems including diabetes, hypertension, peripheral vascular disease, heart failure. She receives renal replacement therapy every Tuesday, Tuesday, and Tuesday using a right IJ tunneled dialysis catheter. She has a developing fistula in the left forearm. She has severe vascular calcification. She came to the emergency room because of worsening abdominal pain as well as vomiting and some altered mental status. Today she is rather quiet, but she does answer my questions. She states she was able to eat at least the liquid portions of her tray. No diarrhea. She did have constipation earlier in the week that resolved into diarrhea after her gave milk of magnesia. They were in [facility] yesterday when she began having worsening abdominal pain that prompted her admission. PAST MEDICAL HISTORY: As above. HOME MEDICATIONS: Amlodipine, baclofen, carvedilol, fenofibrate, furosemide, hydralazine, [place], levothyroxine, Tradjenta, losartan, omeprazole, oxybutynin, prednisone. ALLERGIES: None. SOCIAL HISTORY: She is and lives with her , but he has his own set of medical problems and requires home oxygen. FAMILY HISTORY: Otherwise noncontributory. REVIEW OF SYSTEMS: Otherwise noncontributory. PHYSICAL EXAMINATION: Vital Signs: Blood pressure 205/90, heart rate 61, respiration 18, afebrile. General: She is an elderly woman, lying in bed. Eyes are closed. Somewhat withdrawn, but she does answer my questions. Skin: Warm and dry. HEENT: Conjunctivae are pale. Pupils are equal. Oropharynx is dry. Neck: Neck veins are not distended. Heart: Regular with systolic murmur. Lungs: Equal. No crackles or wheezes. Abdomen: Soft, nontender. Bowel sounds present but diminished. Extremities: Minimal edema. There is a thrill in the left forearm AV fistula. Neurologic: Grossly nonfocal. IMPRESSION: 1. Abdominal pain. CT of the abdomen was performed overnight which had evidence of gastroparesis but no other specific findings related to her GI tract. She is better. 2. Chronic kidney disease 5D. She missed her dialysis on Tuesday. Labs are acceptable, so we will hold dialysis until tomorrow. Volume status is acceptable. Her potassium was modestly elevated at 5.8 on last evening. I will address this. 3. Pain control. She is receiving hydromorphone. 4. Hypertension. Poorly controlled. She is on amlodipine 10 mg a day, carvedilol 25 twice a day, hydralazine 100 mg 3 times a day, losartan 100 mg a day. Blood pressure has remained high despite this rather aggressive treatment through the day today. I will add nitrates. cc: MD David Benson MD
[2019-04-29] MEDS ORDERED: COREG PO SCH (21:00)
[2019-04-29] MEDS: ISMO PO SCH (21:25)
[2019-04-30] MEDS: DILAUDID IV PRN ×2 (02:38→06:10)
[2019-04-30] MEDS: PHENERGAN IV PRN (03:16)
[2019-04-30] MEDS: HUMULIN R SUBQ SCH ×4 (06:10→20:34)
[2019-04-30] MEDS: SYNTHROID PO SCH (06:16)
[2019-04-30 07:13] LABS: BASO# 0.03 X1000 (0.0-0.2); BASO% 0.3 % (0.0-0.8); EOS# 0.25 X1000 (0.0-0.7); EOS% 2.8 % (0.0-10.0); HEMATOCRIT 45.1 % (37.0-47.0); HEMOGLOBIN 13.9 g/dL (12.0-16.0); IMM GRAN# 0.02 X1000 (0.0-0.04); IMM GRAN% 0.2 % (0.0-0.5); LYMPH# 2.28 X1000 (1.2-3.4); LYMPH% 25.8 % (20.5-51.1); MCH 30.6 PG (27-31); MCHC 30.8 g/dL (33-37); MCV 99.3 FL (81-99); MONO% 18.1 % (1.7-9.3); NEUT# 4.66 X1000 (1.4-6.5); NEUT% 52.8 % (42.2-75.2); PLT 102 X1000 (130-400); RBC 4.54 XMIL (4.2-5.4); RDW 18.7 % (11.5-14.5); WBC 8.84 X1000 (4.8-10.8)
[2019-04-30 07:39] LABS: CALCIUM 9.5 mg/dL (8.8-10.2); CREATININE 7.9 mg/dL (0.5-0.9)
[2019-04-30 07:59] LABS: POTASSIUM 6.3 mmol/L (3.5-5.1)
[2019-04-30] MEDS ORDERED: NS 2,000 ML MISC PRN (08:00)
[2019-04-30] MEDS ORDERED: HEPARIN IV PRN (08:00)
[2019-04-30] MEDS ORDERED: COZAAR PO SCH (09:00)
[2019-04-30] MEDS ORDERED: NORVASC PO SCH (09:00)
--- NOTE | 2019-04-30 11:42 | PROGRESS NOTE ---
DATE: 04/30/2019 SUBJECTIVE: A 73-year-old female has been doing well after dialysis and also TAVR placement. Apparently, skipped the dialysis on Tuesday with gastroenteritis symptoms. Came in with altered mental status, abdominal pain, left arm pain. Apparently, she is very sulci, passive-aggressive behavior, not talking, asking for pain medicines. REVIEW OF SYSTEMS: Not able to obtain. I did see the patient yesterday morning with the family members after she got admitted, and I spoke to Dr. Dejesus. He is going to do dialysis this morning. During dialysis, the patient had some jerking movements, awake, it does not appear to be seizure. She knows who she is, but she is not giving any history. At this time, it is hard to get any history from the patient. Last night, the nurses called me. She is asking for pain medicines, not taking the pills, and on the blood pressure medicine I started her on IV hydralazine. I am going to stop the Dilaudid at this time. The altered mental status etiology is not clear. Review of systems as above. PAST MEDICAL HISTORY: Reviewed. PAST SURGICAL HISTORY: Reviewed. MEDICATIONS: Reviewed. PHYSICAL EXAMINATION: Vital Signs: She has a low-grade fever. Blood pressure is 170/86. General: The patient was seen on dialysis, in and out. She knows her name. Not following with verbal commands. She is getting dialysis through the tunnel catheter on the right side. Lungs: Bilateral air entry. Heart: Heart sounds are regular. Abdomen: Belly is soft, nontender. Left side, she has AV graft, palpable thrill. IMAGING AND LABORATORY DATA: White cell count 8.8, hematocrit 45, platelets 102,000. Sodium 137, potassium 6.3, BUN 79, creatinine 7.9. Urinalysis is clear. CT head: No evidence of acute intracranial pathology. CT scan of the abdomen and pelvis: Gastroparesis, left kidney complex cyst. Chest x-ray: Stable chest. Right-sided tunnel catheter present. ASSESSMENT AND PLAN: 1. Altered mental status due to delirium. It does not appear to be seizure. 2. Noncompliance. 3. Gastroparesis with gastroenteritis symptoms, not taking the medications. Plan is hemodialysis as per Dr. Dejesus. 4. Discontinue Dilaudid. 5. Reconcile home medicines. I am going to start Zofran for nausea, Nexium. Will discuss with Dr. Dejesus, and will follow up. LEVEL OF DOCUMENTATION: 35 minutes. cc: David Stovall MD
[2019-04-30] MEDS: APRESOLINE PO SCH ×3 (13:09→20:34)
[2019-04-30] MEDS: NORVASC PO SCH (13:09)
[2019-04-30] MEDS: ZYLOPRIM PO SCH (13:09)
[2019-04-30] MEDS: ROCALTROL PO SCH (13:09)
[2019-04-30] MEDS: COZAAR PO SCH (13:09)
[2019-04-30] MEDS: ICAR-C PLUS PO SCH (13:09)
[2019-04-30] MEDS: TRADJENTA PO SCH (13:10)
[2019-04-30] MEDS: PROTONIX IV SCH (13:10)
[2019-04-30] MEDS: PRILOSEC PO SCH (13:10)
[2019-04-30] MEDS: SODIUM CHLORIDE 0.9% INJ SCH (13:10)
[2019-04-30] MEDS: COREG PO SCH ×2 (13:16→20:34)
[2019-04-30] MEDS: ISMO PO SCH ×2 (13:17→20:34)
[2019-04-30] MEDS: HEPARIN SUBQ SCH ×2 (13:17→20:34)
--- NOTE | 2019-04-30 13:17 | NEPHROLOGY PROGRESS NOTE ---
DATE: 04/30/2019 SUBJECTIVE: She is on dialysis currently. I did not give any words from her. She would moan only. She had stereotypical movement of the head with contraction of the left sternocleidomastoid. I discussed this with Dr. Stovall directly. OBJECTIVE: Vital Signs: Blood pressure 170/86, heart rate 75, respirations 15, afebrile. Generally: No acute distress. Skin: Warm and dry. Conjunctivae are pink. Neck: Neck veins are not appreciated. Heart: Regular. Lungs: Equal. Abdomen: Soft. Extremities: Have no edema. No clubbing or cyanosis. IMPRESSION: 1. Chronic kidney disease 5D. She is receiving dialysis currently using a 2 potassium bath and a goal of 2 L ultrafiltration. 2. Electrolytes/acid base. Potassium 6.3, 2K bath. 3. Anemia in target. 4. Hypertension improved, overall, but she has not been able to take her oral medicines this morning. She does have IV Apresoline that can be used if she is not able to take her p.o. medications. 5. Rhythmic head movement. I discussed with Dr. Stovall. He does not feel this is a seizure. I am certainly not convinced either. We will observe. cc: MD David Benson MD
[2019-05-01] MEDS: HUMULIN R SUBQ SCH ×4 (06:18→20:32)
[2019-05-01] MEDS: SYNTHROID PO SCH (06:22)
[2019-05-01] MEDS: HEPARIN SUBQ SCH ×2 (09:13→20:23)
[2019-05-01] MEDS: PRILOSEC PO SCH (09:13)
[2019-05-01] MEDS: ROCALTROL PO SCH (09:13)
[2019-05-01] MEDS: ZYLOPRIM PO SCH (09:14)
[2019-05-01] MEDS: COZAAR PO SCH (09:14)
[2019-05-01] MEDS: APRESOLINE PO SCH ×3 (09:14→16:14)
[2019-05-01] MEDS: NORVASC PO SCH (09:14)
[2019-05-01] MEDS: ICAR-C PLUS PO SCH (09:14)
[2019-05-01] MEDS: TYLENOL PO PRN ×2 (09:14→20:28)
[2019-05-01] MEDS: COREG PO SCH ×2 (09:15→20:22)
[2019-05-01] MEDS: TRADJENTA PO SCH ×2 (09:15→09:16)
[2019-05-01] MEDS: ISMO PO SCH ×2 (09:16→20:23)
[2019-05-01] MEDS: PREDNISONE PO SCH (09:44)
[2019-05-01 11:24] LABS: ALBUMIN 2.9 g/dL (3.5-5.0); CALCIUM 9.5 mg/dL (8.8-10.2); CREATININE 5.7 mg/dL (0.5-0.9); PHOSPHORUS 6.9 mg/dL (2.7-4.5); POTASSIUM 5.4 mmol/L (3.5-5.1)
[2019-05-01] MEDS: PROTONIX IV SCH (13:28)
--- NOTE | 2019-05-01 14:15 | NEPHROLOGY PROGRESS NOTE ---
DATE: 05/01/2019 TIME SEEN: 629 SUBJECTIVE: Ms. Gao is sitting up in bed. She is more awake and alert. She is talking verbally. She is nodding and speaking appropriately. She states that she has back pain. OBJECTIVE: Her most recent vital signs temperature 98.3 degrees, blood pressure 144/76, heart rate 59, respirations 16, she is on 2 L nasal cannula, last recorded saturation 100%. She has had 0 recorded in, she has had 3700 off on dialysis yesterday. LAB: Sodium 128, potassium 5.4, chloride 92, CO2 24, BUN 49, creatinine 5.7, glucose 137, her anion gap is 12, calcium 9.5, phosphorus 6.9, albumin 2.9. Previous hemoglobin 13.9. Blood culture results are negative. PHYSICAL EXAMINATION: General: This is a 73-year-old female resting quietly in bed. She appears in no acute distress. Skin: Warm and dry. HEENT: Normocephalic, atraumatic. Conjunctiva is pale pink. She has KISHOR. Mucous membranes are dry. Neck: Supple. Trachea midline. No evidence of JVD. Cardiovascular: She is regular rate and rhythm. She has a soft systolic murmur. Lungs: Clear to auscultation bilaterally. Equal excursion on O2. Abdomen: Soft, nontender. Positive bowel sounds. Genitourinary: Not inspected. Minimal void with dialysis assist. Extremities: Have no edema, no clubbing or cyanosis. She has a dialysis fistula to her left forearm. Integumentary: Patient has a tunnel dialysis catheter to the right IJ, this is dry and intact. No rashes or lesions evident. Neurological: She is alert to person and to place, to most recent events. ASSESSMENT AND PLAN: 1. Chronic kidney disease stage 5D. The patient is due for her routine dialysis treatment in the a.m. No indications for intervention today. 2. Electrolytes and acid-base balance. The patient has hyponatremia and hypernatremia with correction on dialysis, these are stable. 3. Anemia. This is in target. 4. Altered mental status. The patient has improved. No indications for cause. 5. Complaints of back pain. We will check a sedimentation rate, a CRP. She does complain of constipation. We will order sorbitol daily x2. We will also check a bladder scan to see if patient has obstruction uropathy. Otherwise we will discuss further treatments with Dr. Stovall. I would like to thank you for allowing us to follow with this patient. Dictated by JACK Hill for Genaro Dejesus MD Face to face encounter, data reviewed, discussed with Melanie Victoria on 05/01/19. I agree with the above assessment and plan of care. cc: JACK Hill MD Jagan Reddy, MD [facility]
--- NOTE | 2019-05-01 21:25 | PROGRESS NOTE ---
DATE: 05/01/2019 SUBJECTIVE: The patient has a little better mental status. No seizure activity. She is talking better. She has some pain from the left hand where we dilated the AV graft. She has a tunneled catheter. She had dialysis today. No gastritis symptoms. REVIEW OF SYSTEMS: None reported. PHYSICAL EXAMINATION: Temperature is 98 degrees, pulse 58, blood pressure is stable.HEENT: Within normal limits. Neck: Supple. Tunneled catheter on the right side. A lot of bruising noted on the left forearm. Belly is soft, nontender. No obvious deficits. INVESTIGATIONS: Sodium 138, potassium 5.4, BUN 49, creatinine 5.7, glucose 109. CRP was high. ASSESSMENT AND PLAN: 1. Altered mental status, improving. 2. Gastroenteritis symptoms are better. 3. End-stage kidney disease, on dialysis. Slowly restart her home medications. Discussed with the family at bedside and will follow up. LEVEL OF DOCUMENTATION: 25 minutes. cc: David Stovall MD
[2019-05-02] MEDS ORDERED: NORCO-10 PO PRN (00:08)
[2019-05-02] MEDS: APRESOLINE IV PRN (04:08)
[2019-05-02] MEDS: SYNTHROID PO SCH (06:02)
[2019-05-02] MEDS ORDERED: TIGHT: 0.2 ML/HR FOR DIALYSIS MISC PRN (06:11)
[2019-05-02] MEDS ORDERED: HEPARIN IV PRN (06:11)
[2019-05-02] MEDS ORDERED: NS 2,000 ML MISC PRN (06:11)
[2019-05-02] MEDS: HUMULIN R SUBQ SCH ×4 (06:43→21:00)
[2019-05-02] MEDS: COREG PO SCH ×2 (08:35→20:45)
[2019-05-02] MEDS: APRESOLINE PO SCH ×3 (08:35→17:07)
[2019-05-02] MEDS: NORVASC PO SCH (08:35)
[2019-05-02] MEDS: ICAR-C PLUS PO SCH (08:35)
[2019-05-02] MEDS: PRILOSEC PO SCH (08:35)
[2019-05-02] MEDS: ZYLOPRIM PO SCH (08:35)
[2019-05-02] MEDS: ROCALTROL PO SCH (08:35)
[2019-05-02] MEDS: COZAAR PO SCH (08:36)
[2019-05-02] MEDS: TRADJENTA PO SCH (08:36)
[2019-05-02] MEDS: SORBITOL PO SCH (08:36)
[2019-05-02] MEDS: ISMO PO SCH ×2 (08:36→20:45)
[2019-05-02] MEDS: HEPARIN SUBQ SCH ×2 (08:37→20:45)
[2019-05-02 09:25] LABS: CALCIUM 9.5 mg/dL (8.8-10.2); PHOSPHORUS 8.5 mg/dL (2.7-4.5)
--- NOTE | 2019-05-02 13:39 | NEPHROLOGY PROGRESS NOTE ---
DATE: 05/02/2019 TIME SEEN: 0635. SUBJECTIVE: Ms. Gao is resting quietly in bed. Her head of the bed is slightly elevated. She is a little bit more lethargic today. Her states that she was given something for restlessness at approximately 2 a.m. OBJECTIVE: Her most recent vital signs: Temperature 98.2 degrees, blood pressure 193/60, heart rate 53, respirations 16, she is on 2 L nasal cannula, last recorded saturation 97%. Intake and Output: She has had 0 recorded in. She has had 75 mL recorded out to void. General: This is a 73-year-old female. She is resting quietly in bed. She appears chronically ill. She is in no acute distress. Skin is warm and dry. HEENT: Normocephalic, atraumatic. Conjunctivae pale pink. She has KISHOR. Mucous membranes are dry. Neck: Supple. Trachea midline. She has negative JVD. Cardiovascular: Regular rate and rhythm. She has a systolic murmur. Lungs: Clear to auscultation bilaterally with equal excursion on O2. Abdomen: Slightly distended, soft. Positive bowel sounds present. Genitourinary: Not inspected. Minimal void with dialysis assist. Extremities: Have no edema, no clubbing or cyanosis. Left forearm AV fistula palpable thrill. Integumentary: She has a tunneled catheter to the right IJ. This is dry and intact. Neurological: Lethargic, responds appropriately, though slow to respond. LABORATORY DATA: These are currently pending. Previous potassium of 5.4 with a previous hemoglobin 13.9. Her ESR was 6. The patient's CRP was 97.31 yesterday. ASSESSMENT AND PLAN: 1. Chronic kidney disease, stage 5D. The patient is due for her routine dialysis treatment today. We will place her on a 2 K bath. She is to dialyze for 3-1/2 hours. We will pull her to her last outpatient dry weight. 2. Electrolytes and acid-base balance. These are currently pending this a.m. 3. Anemia. This is in target. 4. Altered mental status. The patient had received medication at 2 a.m. She is lethargic, though states she is appropriate when she speaks to him. She does continue to complain of back pain. She does have a tunneled catheter to the right IJ. We have treated her for possible constipation. Her CRP is elevated. Blood cultures are negative at this time. We will discuss further treatments with Dr. Stovall. I would like to thank you for allowing us to follow with this patient. Dictated by JACK Hill for Genaro Dejesus MD Face to face encounter, data reviewed, discussed with Melanie Victoria on 05/02/19. I agree with the above assessment and plan of care. cc: JACK Hill MD Jagan Reddy, MD [facility]
[2019-05-02] MEDS: PROTONIX IV SCH (17:06)
[2019-05-02] MEDS: SODIUM CHLORIDE 0.9% INJ SCH (17:06)
--- NOTE | 2019-05-02 22:52 | PROGRESS NOTE ---
DATE: 05/02/2019 SUBJECTIVE: The patient's mental status seems to be improving. Still has nausea, pain in the left arm. According to the , she is getting better. She is going for dialysis today. OBJECTIVE: Vital Signs: Temperature is 98.5 degrees, pulse is 66, blood pressure is 160/72. HEENT Exam: Within normal limits. Neck: Supple. Chest: Clear. Cardiovascular: Heart sounds are regular. Tunnel catheter present on the right side. INVESTIGATIONS: Sodium 123, potassium 6, BUN 57, creatinine 7.0. ASSESSMENT AND PLAN: 1. End-stage kidney disease on dialysis. Needs to correct the electrolytes. 2. Altered mental status improving. 3. Gastroparesis. We will use the Reglan if not better. 4. Gout, on Zyloprim. 5. Hypertension is stable on Coreg, Norvasc and Cozaar. 6. Status post transcatheter aortic valve replacement for aortic stenosis, stable. 7. Deep venous thrombosis prophylaxis with heparin. 8. Hypertension is stable. Continue on present medications, which includes Coreg, amlodipine and hydralazine isosorbide. 9. Hypothyroidism on Synthroid. 10. Sarcoidosis. Prednisone 5 mg every other day. 11. Constipation. She was given sorbitol and the patient is going for dialysis today. 12. Decreased ambulation. We will ask Physical Therapy for assistance and patient is going to transfer from [facility] to first-floor close to the dialysis center and we will follow up. LEVEL OF DOCUMENTATION: 35 minutes. cc: David Stovall MD
[2019-05-03] MEDS: SYNTHROID PO SCH ×2 (05:58→05:59)
[2019-05-03] MEDS: HUMULIN R SUBQ SCH ×4 (05:59→21:28)
[2019-05-03 08:26] LABS: CALCIUM 9.2 mg/dL (8.8-10.2); CREATININE 4.7 mg/dL (0.5-0.9); PHOSPHORUS 5.9 mg/dL (2.7-4.5); POTASSIUM 4.3 mmol/L (3.5-5.1)
[2019-05-03] MEDS: COREG PO SCH ×2 (09:00→20:28)
[2019-05-03] MEDS: ZYLOPRIM PO SCH (09:17)
[2019-05-03] MEDS: ROCALTROL PO SCH (09:17)
[2019-05-03] MEDS: PREDNISONE PO SCH (09:18)
[2019-05-03] MEDS: COZAAR PO SCH (09:18)
[2019-05-03] MEDS: TRADJENTA PO SCH (09:18)
[2019-05-03] MEDS: ISMO PO SCH ×2 (09:18→20:28)
[2019-05-03] MEDS: ICAR-C PLUS PO SCH (09:18)
[2019-05-03] MEDS: NORVASC PO SCH (09:18)
[2019-05-03] MEDS: APRESOLINE PO SCH ×3 (09:18→21:32)
[2019-05-03] MEDS: HEPARIN SUBQ SCH ×2 (09:19→20:28)
[2019-05-03] MEDS: SORBITOL PO SCH (09:19)
[2019-05-03] MEDS: SODIUM CHLORIDE 0.9% INJ SCH (15:27)
[2019-05-03] MEDS: PROTONIX IV SCH (15:27)
--- NOTE | 2019-05-03 20:02 | NEPHROLOGY PROGRESS NOTE ---
DATE: 05/03/2019 SUBJECTIVE: Ms. Gao is resting quietly in bed. Head of the bed is slightly elevated. She is awake and alert. She does not remember anything for the last 3 to 4 days. States that her back is feeling better. She has no complaints of nausea and vomiting. OBJECTIVE: Her most recent vital signs are last temperature 98.1 degrees, blood pressure 169/66, heart rate is 72, respirations 19. She is on room air. Last recorded saturation is 91%. She has had 100 in she has had 0 out with need for dialysis. LABS: Sodium is 133, potassium 4.3, chloride 96, CO2 27, BUN 30, creatinine 4.7, glucose is 114. Her anion gap is 10. Her calcium 9.2, phosphorus 5.9, albumin is 3 with a previous hemoglobin of 13.9. PHYSICAL EXAMINATION: General: This is a 73-year-old female resting quietly in bed. She appears chronically ill. No acute distress. More awake and alert today. Skin: Warm and dry. HEENT: Normocephalic, atraumatic. Conjunctiva is pale. She has KISHOR. Mucous membranes are dry. Neck: Supple. Trachea midline. No JVD. Cardiovascular: Regular rate and rhythm. Systolic murmur present. Lungs: Clear to auscultation bilaterally. Equal excursion on O2. Abdomen: Soft, nontender. Positive bowel sounds. Genitourinary: Not inspected. Minimal void with dialysis assist. Extremities: With no edema. No clubbing or cyanosis. AV fistula to the left forearm, palpable thrill. Integumentary: Dialysis tunnel catheter to the right IJ, dry and intact. Neurological: Alert and oriented x3, more awake today. ASSESSMENT AND PLAN: 1. Chronic kidney disease stage 5D. The patient is due for her routine dialysis treatment in the a.m. No indications for intervention today. Remove the stitch to her left fistula arm today and plan for dialysis in the a.m. 2. Electrolytes, acid-base balance. These are currently stable with dialysis correction. 3. Anemia. This is in target. 4. Altered mental status. This has improved. I would like to thank you for allowing us to follow with this patient. Dictated by JACK Hill for Genaro Dejesus MD Face to face encounter, data reviewed, discussed with Melanie Victoria on 05/04/19. I agree with the above assessment and plan of care. cc: JACK Hill MD Jagan Reddy, MD [facility]
--- NOTE | 2019-05-03 22:17 | PROGRESS NOTE ---
DATE: 05/03/2019 SUBJECTIVE: Patient's mental status improving after dialysis. Pain is better and no nausea or vomiting. OBJECTIVE: Vital signs: On examination temp is 98 degrees, pulse is 66, vitals are stable. HEENT: Exam within normal limits. Neck: Is supple. Chest: Is clear. Heart: Sounds are regular. Abdomen: Belly is soft, nontender. Neurologic: No obvious neurological deficits. INVESTIGATIONS: Sodium 133, potassium 4.3, chloride 96, BUN 30, creatinine 4.7. ASSESSMENT AND PLAN: 1. Altered mental status improving, probably delirium. 2. End-stage kidney disease on dialysis. 3. Left arm pain from recent instrumentation opening of the graft with bruising. Continue on [place] as needed. 4. Status post TAVR is better and advanced the diet. Encouraged ambulation with physical therapy and we will discharge in the morning. Outpatient with hemodialysis from the tunnel catheter on the right side. Continue present treatment. LEVEL OF DOCUMENTATION: 25 minutes. cc: David Stovall MD [facility]
[2019-05-04] MEDS: SYNTHROID PO SCH (06:02)
[2019-05-04] MEDS: HUMULIN R SUBQ SCH ×2 (06:08→12:00)
[2019-05-04] MEDS ORDERED: TIGHT: 0.2 ML/HR FOR DIALYSIS MISC PRN (06:47)
[2019-05-04] MEDS ORDERED: NS 2,000 ML MISC PRN (06:47)
[2019-05-04] MEDS ORDERED: HEPARIN IV PRN (06:47)
[2019-05-04 08:23] LABS: ALBUMIN 3.4 g/dL (3.5-5.0); CALCIUM 10.2 mg/dL (8.8-10.2); PHOSPHORUS 6.1 mg/dL (2.7-4.5); POTASSIUM 4.7 mmol/L (3.5-5.1)
[2019-05-04 08:25] LABS: CREATININE 5.8 mg/dL (0.5-0.9)
[2019-05-04] MEDS: ROCALTROL PO SCH (11:49)
[2019-05-04] MEDS: ISMO PO SCH (11:49)
[2019-05-04] MEDS: APRESOLINE PO SCH (11:50)
[2019-05-04] MEDS: COZAAR PO SCH (11:50)
[2019-05-04] MEDS: COREG PO SCH (11:51)
[2019-05-04] MEDS: ZYLOPRIM PO SCH (11:51)
[2019-05-04] MEDS: TRADJENTA PO SCH (11:51)
[2019-05-04] MEDS: ICAR-C PLUS PO SCH (11:51)
[2019-05-04] MEDS: NORVASC PO SCH (11:51)
[2019-05-04] MEDS: HEPARIN SUBQ SCH (11:52)
[2019-05-04 11:53] VITALS: BP 169/70
--- NOTE | 2019-05-04 19:06 | NEPHROLOGY PROGRESS NOTE ---
DATE: 05/04/2019 SUBJECTIVE: She is feeling better and desires discharge. No shortness of breath. No nausea, vomiting, etc. OBJECTIVE: Vital Signs: Blood pressure 175/67, heart rate 64, respiration 18, afebrile. General: No acute distress. Skin: Warm and dry. Neck: Neck veins are not distended. Heart: Regular. Lungs: Equal. No crackles. Abdomen: Soft. Bowel sounds present. Extremities: No edema, clubbing or cyanosis. IMPRESSION: Chronic kidney disease 5D. She will have her routine hemodialysis today using her outpatient dialysis prescription. A 2-potassium bath. Okay for discharge from my perspective. cc: MD David Benson MD [facility]
--- NOTE | 2019-05-08 13:25 | DISCHARGE SUMMARY ---
ADMISSION DATE: 04/29/2019 DISCHARGE DATE: 05/04/2019 DISCHARGING DIAGNOSES: 1. Altered mental status due to metabolic encephalopathy due to worsening of chronic kidney disease due to skipping the dialysis. 2. Gastroenteritis symptoms due to nonspecific gastroenteritis with diabetic gastroparesis. 3. Status post TAVR due to severe aortic stenosis. 4. Diastolic heart failure due to hypertension and Pickwickian syndrome. 5. Type 2 diabetes. 6. Hypertension. 7. Osteoarthritis. 8. Gout. 9. Hypothyroidism. 10. Sleep apnea, on bilevel positive airway pressure machine. 11. Chronic sarcoidosis with interstitial fibrosis, on prednisone. 12. Tunnel catheter on the right side. 13. Status post arteriovenous fistula graft in the left forearm with dilatation with a lot of bruising and pain. 14. Status post total knee arthroplasty on the left side. 15. History of colon resection on the right side by Dr. Sierra. 16. Chronic anemia due to end-stage kidney disease. CONSULTS: Dr. Dejesus. BRIEF HISTORY: Please see the H and P that was done by hospitalist. In brief, she is a 73-year- old white female with the above problems, who basically had some workup on the left forearm fistula, followed by skipping the dialysis, who came in with nausea, vomiting, diarrhea, altered mental status, not talking, not eating, not walking. The patient was confused before. HOSPITAL COURSE: The patient was restarted on dialysis, and after that, her symptoms slowly improved. The patient started taking the medications, came back to the baseline, walking well. At the time of discharge, hemodynamics were stable. LABORATORY DATA: CBC: White cell count 8.8, hematocrit 45, platelets 102,000. Sedimentation rate was 6. Sodium 133, potassium 4.7, chloride 97, BUN 39, creatinine 0.5, glucose 128. Blood cultures were negative. DISCHARGE INSTRUCTIONS: 1. Resume the home medicines. 2. Continue hemodialysis as per Dr. Dejesus, Tuesday, Tuesday, Tuesday. 3. Synthroid 100 mcg daily. 4. Amlodipine 10 mg daily. 5. Ditropan XL 10 mg daily. 6. Coreg 12.5 p.o. b.i.d. 7. Prednisone 5 mg every other day. 8. Cozaar 100 mg daily. 9. Calcitriol 0.5 mcg daily. 10. Hydralazine 100 p.o. t.i.d. 11. Prilosec 40 mg daily. 12. Icar C Plus 1 tablet daily. 13. Tradjenta 5 mg daily. 14. Baclofen 5 mg b.i.d. 15. Allopurinol 100 mg daily. 16. Follow up in my office. cc: MD Genaro Fernandez MD [facility]
== END 2019-05-04 12:29 | disposition home health service (06) | DRG 291 ==
LOC: ED 21:14 → 2N 04-29 05:31 → SUATTDRO 04-29 05:31 → 1N 05-02 13:29
PROVIDERS: ADMIT Internal Medicine; ATTEND Internal Medicine